=== PATIENT | female | born 1970 | race Caucasian/White ===

== ENCOUNTER 2017-08-09 11:25 | Inpatient (IN) | payer BC ==
[2017-08-09] VITALS (13 sets, daily range): BP systolic 92–160; BP diastolic 43–70; PULSE 69–100; RESP 12–20; TEMP 95–97.9; O2SAT 97–100
[~2017-08-09] VITALS: Ht 172.7 cm; Wt 70.0 kg
[2017-08-09 11:52] LABS: AUTOMATED NEUTROPHIL # 5.5 TH/MM3 (1.8-7.7); BASOPHIL % 0.5 % (0.0-2.0); EOSINOPHIL % 0.3 % (0.0-4.0); HEMATOCRIT 38.6 % (35.0-46.0); HEMOGLOBIN 13.2 GM/DL (11.6-15.3); LYMPH % 20.2 % (9.0-44.0); LYMPHOCYTE # 1.5 TH/MM3 (1.0-4.8); MEAN CELL VOLUME 89.4 FL (80.0-100.0); MEAN CORPUSCULAR HEMOGLOBIN 30.7 PG (27.0-34.0); MEAN CORPUSCULAR HGB CONC 34.3 % (32.0-36.0); MEAN PLATELET VOLUME 8.5 FL (7.0-11.0); MONOCYTE # 0.4 TH/MM3 (0-0.9); PLATELET COUNT 214 TH/MM3 (150-450); RED BLOOD COUNT 4.31 MIL/MM3 (4.00-5.30); RED CELL DISTRIBUTION WIDTH 12.8 % (11.6-17.2); WHITE BLOOD COUNT 7.5 TH/MM3 (4.0-11.0)
[2017-08-09] MEDS ORDERED: TRANEXAMIC ACID INJ 1,000 MG/10 ML AMP IV ONE (12:00)
[2017-08-09] MEDS ORDERED: EPINEPHrine HCL (1:1000) 1 MG/ML VIAL IV ONE (12:00)
[2017-08-09] MEDS ORDERED: NOREPINEPHRINE 4 MG/4 ML AMP IV ONE (12:00)
[2017-08-09] MEDS ORDERED: ePHEDrine/NS 25 MG/5 ML SYRINGE IV ONE (12:00)
[2017-08-09] MEDS ORDERED: PROTAMINE SULFATE 250 MG/25 ML VIAL IV ONE (12:00)
[2017-08-09] MEDS ORDERED: HEPARIN SODIUM - SQ 10,000 UNITS/ML VIAL OTHER ONE (12:00)
[2017-08-09] MEDS ORDERED: VECURONIUM BROMIDE 10 MG VIAL IV ONE (12:00)
[2017-08-09] MEDS ORDERED: LIDOCAINE HCL 1% PF 5 ML AMPULE OTHER ONE (12:00)
[2017-08-09] MEDS ORDERED: MAGNESIUM SULFATE 1 GM/2 ML VIAL IV ONE (12:00)
[2017-08-09] MEDS ORDERED: LIDOCAINE HCL 2% 100 MG/5 ML SYRINGE IV PUSH ONE (12:00)
[2017-08-09] MEDS ORDERED: CALCIUM CHLORIDE 10% SOLN 1 GRAM/10 ML SYR IV ONE (12:00)
[2017-08-09] MEDS ORDERED: NITROGLYCERIN 50 MG/DEXTROSE 5% SOLN 250 ML BTL IV ONE (12:00)
[2017-08-09] MEDS ORDERED: AMIODARONE HCL 150 MG/3 ML VIAL IV ONE (12:00)
[2017-08-09] MEDS ORDERED: SODIUM BICARBONATE 8.4% INJ 50 MEQ/50 ML SYR IV ONE (12:00)
[2017-08-09] MEDS ORDERED: DEXMEDETOMIDINE HCL 200 MCG/2 ML VIAL IV ONE (12:00)
[2017-08-09] MEDS ORDERED: CARDIOPLEGIC IRR 2,000 ML IRRIGATION ONE (12:00)
[2017-08-09] MEDS ORDERED: PHENYLEPH/NS 1000 MCG/10 ML SYR IV ONE (12:00)
--- NOTE | 2017-08-09 12:00 | PD ---
HPI Chief Complaint: Numbness/Tingling Time Seen by Provider: 11:28 Travel History International Travel<30 days: No Contact w/Intl Traveler<30days: No Traveled to known affect area: No History of Present Illness HPI 47yo F with no significant PMH presents to the ED with c/o chest discomfort that radiates to back and neck, as well as right leg weakness and numbness that started about 30 minutes ago. Pt has a family history of aortic aneurysm but no personal history. BP was significantly different in both arms. Associated with sob. Denies any n/v, abdominal pain. Pt has a strong family history of Marfan and aortic aneurysm. PFSH Past Medical History Medical History: Denies Significant Hx Tetanus Vaccination: > 5 Years Influenza Vaccination: No ?: Not LMP: 07/28/17 Past Surgical History Surgical History: No Previous Surgery Social History Alcohol Use: No Tobacco Use: No Substance Use: No Allergies-Medications (Allergen,Severity, Reaction): Coded Allergies: No Known Allergies (Verified Allergy, Unknown, 08/09/17) Reported Meds & Prescriptions Reported Meds & Active Scripts Active No Active Prescriptions or Reported Medications Review of Systems Except as stated in HPI: all other systems reviewed are Neg Physical Exam Narrative GENERAL: 47yo F in moderate distress. SKIN: Focused skin assessment warm/dry. HEAD: Atraumatic. Normocephalic. EYES: Pupils equal and round. No scleral icterus. No injection or drainage. ENT: No nasal bleeding or discharge. Mucous membranes pink and moist. NECK: Trachea midline. No JVD. CARDIOVASCULAR: Regular rate and rhythm. No murmur appreciated. RESPIRATORY: No accessory muscle use. Clear to auscultation. Breath sounds equal bilaterally. GASTROINTESTINAL: Abdomen soft, non-tender, nondistended. MUSCULOSKELETAL: RLE DP 1+. LLE: 2+. Left radial pulse 2+. Cannot palpate right radial pulse. NEUROLOGICAL: Awake and alert. No obvious cranial nerve deficits. RLE muscle strength 4/5 with decreased sensation compare to left. All other extremity muscle strength 5/5. Normal speech. PSYCHIATRIC: Appropriate mood and affect; insight and judgment normal. Data Data Last Documented VS Vital Signs Date Time Temp Pulse Resp B/P (MAP) Pulse Ox O2 Delivery O2 Flow Rate FiO2 08/09/17 13:11 67 159/68 08/09/17 12:50 18 99 Room Air 08/09/17 11:28 97.9 Orders Orders Electrocardiogram (08/09/17 11:28) Basic Metabolic Panel (Bmp) (08/09/17 11:28) Complete Blood Count With Diff (08/09/17 11:28) Magnesium (Mg) (08/09/17 11:28) Prothrombin Time / Inr (Pt) (08/09/17 11:28) Act Partial Throm Time (Ptt) (08/09/17 11:28) Troponin I (08/09/17 11:28) Ecg Monitoring (08/09/17 11:28) Bilateral Bp Monitoring (08/09/17 11:28) Cta Thor Abd Aorta W Iv C W3d (08/09/17 11:28) Ct Brain W/O Iv Contrast(Rout) (08/09/17 ) I-Stat Profile (08/09/17 11:31) Iohexol 350 Inj (Omnipaque 350 Inj) (08/09/17 12:08) Type And Screen (08/09/17 12:11) Echo 2d Comp With Doppler (08/09/17 ) Metoprolol Tartrate Inj (Lopressor Inj) (08/09/17 13:00) Esmolol Drip Inj Premix (Brevibloc Drip (08/09/17 14:00) Esmolol Bolus Inj (Brevibloc Bolus Inj) (08/09/17 13:30) Red Blood Cells (Rbc) (08/09/17 13:01) Urinalysis - C+S If Indicated (08/09/17 13:01) Diet Npo Except Meds (08/09/17 Lunch) Vital Signs (Adult) .On admission (08/09/17 13:01) Notify Dr: Other (08/09/17 13:01) ^ Hold Medication (08/09/17 13:01) Sodium Chloride 0.9% Flush (Ns Flush) (08/09/17 21:00) Sodium Chloride 0.9% Flush (Ns Flush) (08/09/17 13:15) Papaverine Inj (Papaverine Inj)... (08/09/17 13:15) Cefazolin Inj (Ancef Inj) (08/09/17 13:15) Cefazolin 2 Gm Premix (Ancef 2 Gm Premix (08/09/17 13:15) Chlorhexidine 4% Top Soln (Hibiclens 4% (08/09/17 13:15) Insulin Regular (Iv Infusion) (Novolin R (08/09/17 13:15) Dextrose 50% In Mariano (Vial) Inj (D50w (Vi (08/09/17 13:15) Mrsa Pcr Surveillance (08/09/17 13:01) Metoprolol Tartrate Inj (Lopressor Inj) (08/09/17 14:00) Admit Order (Ed Use Only) (08/09/17 13:21) Morphine Inj (Morphine Inj) (08/09/17 14:00) Labs Laboratory Tests Test 08/09/17 11:32 White Blood Count 7.5 TH/MM3 Red Blood Count 4.31 MIL/MM3 Hemoglobin 13.2 GM/DL Bedside Hemoglobin 11.6 G/DL Hematocrit 38.6 % Bedside Hematocrit 34.0 % Mean Corpuscular Volume 89.4 FL Mean Corpuscular Hemoglobin 30.7 PG Mean Corpuscular Hemoglobin Concent 34.3 % Red Cell Distribution Width 12.8 % Platelet Count 214 TH/MM3 Mean Platelet Volume 8.5 FL Neutrophils (%) (Auto) 73.0 % Lymphocytes (%) (Auto) 20.2 % Monocytes (%) (Auto) 6.0 % Eosinophils (%) (Auto) 0.3 % Basophils (%) (Auto) 0.5 % Neutrophils # (Auto) 5.5 TH/MM3 Lymphocytes # (Auto) 1.5 TH/MM3 Monocytes # (Auto) 0.4 TH/MM3 Eosinophils # (Auto) 0.0 TH/MM3 Basophils # (Auto) 0.0 TH/MM3 CBC Comment DIFF FINAL Differential Comment Prothrombin Time 10.7 SEC Prothromb Time International Ratio 1.1 RATIO Activated Partial Thromboplast Time 24.3 SEC Bedside Sodium 139 MMOL/L Blood Urea Nitrogen 14 MG/DL Creatinine 0.73 MG/DL Random Glucose 106 MG/DL Calcium Level 7.7 MG/DL Magnesium Level 1.8 MG/DL Sodium Level 139 MEQ/L Potassium Level 4.9 MEQ/L Chloride Level 111 MEQ/L Carbon Dioxide Level 17.0 MEQ/L Bedside Potassium 4.9 MMOL/L Bedside Chloride 108 MMOL/L Anion Gap 11 MEQ/L Bedside Blood Urea Nitrogen 18 MG/DL Bedside Creatinine 0.7 MG/DL Estimat Glomerular Filtration Rate 86 ML/MIN Bedside Glucose 112 MG/DL Phosphorus Level 3.0 MG/DL Troponin I LESS THAN 0.02 NG/ML MDM Medical Decision Making Medical Screen Exam Complete: Yes Emergency Medical Condition: Yes Interpretation(s) EKG: NSR 66bpm. Normal axis. No ST segment elevation or depression. Differential Diagnosis Aortic dissection vs. CVA vs. ACS Narrative Course 47yo F with chest pain radiating to back and right leg weakness and numbness about 30 minutes prior to arrival. Pt also had BP of 92/43 right upper extremity and 152/56 left upper extremity. Pt was immediately brought to CT scan to r/o dissection on hospital monitor. Also ordered a CT brain just to make sure there is no ICH or CVA given right lower extremity deficits. CTA showed dissection from aortic arch to pelvis to right iliac. Discussed with vascular surgeon Dr. Ponce at 12:20pm. Dr. Ponce came to the ED and said that the dissection involves the ascending aorta so CT surgery is needed. He called CT surgery Dr. Manzano at 12:38pm and Dr. Manzano's PA is on her way. Esmolol drip ordered to keep systolic <110. Esmolol bolus and drip ordered. Official CTA showed extensive anitra type A aortic dissection. 1:18pm Dr. Manzano is in the ED and will take patient to the OR now. Pt has consented. Dr. Fox scrap sorter is also here and accepted the patient. Critical Care Narrative Aggregate critical care time was 45 minutes. Time to perform other separately billable procedures was not included in the critical care time. My time did not include minutes spent treating any other patients simultaneously or on activities that did not directly contribute to the patient's treatment. The services I provided to this patient were to treat and/or prevent clinically significant deterioration that could result in: cardiovascular collapse or . I provided critical care services requiring my management, as noted below: Chart data review, documentation time, medication orders and management, vital sign assessments/reviewing monitor data, ordering and reviewing lab tests, ordering and interpreting/reviewing x-rays and diagnostic studies, care of the patient and discussion of the patient with the admitting physicians. Diagnosis Primary Impression: Aortic aneurysm with dissection Admitting Information Admitting Physician Requests: Admit Scripts No Active Prescriptions or Reported Meds Pao Lancaster DO Aug 09, 2017 12:00
[2017-08-09 12:08] LABS: PROTHROMBIN TIME - PATIENT 10.7 SEC (9.8-11.6)
[2017-08-09] MEDS ORDERED: IOHEXOL 350 MG/ML 10 ML VIAL (for RAD DIAG) IVCONTRAST ONE (12:08)
[2017-08-09 12:10] LABS: INTERNATIONAL NORMALIZED RATIO 1.1 RATIO
--- NOTE | 2017-08-09 12:14 | RADRPT ---
EXAM DATE/TIME: 08/09/2017 11:54 [facility] COMPARISON: No previous studies available for comparison. INDICATIONS : Weakness RADIATION DOSE: 56.35 CTDIvol (mGy) MEDICAL HISTORY : None SURGICAL HISTORY : None. ENCOUNTER: Initial ACUITY: 1 day PAIN SCALE: 0/10 LOCATION: cranial TECHNIQUE: Multiple contiguous axial images were obtained of the head. Using automated exposure control and adj ustment of the mA and/or kV according to patient size, radiation dose was kept as low as reasonably a chievable to obtain optimal diagnostic quality images. DICOM format image data is available electro nically for review and comparison. FINDINGS: CEREBRUM: The ventricles are normal for age. No evidence of midline shift, mass lesion, hemorrhage or acute in farction. No extra-axial fluid collections are seen. POSTERIOR FOSSA: The cerebellum and brainstem are intact. The 4th ventricle is midline. The cerebellopontine angle i s unremarkable. EXTRACRANIAL: The visualized portion of the orbits is intact. SKULL: The calvaria is intact. No evidence of skull fracture. CONCLUSION: No acute disease. Henok Issa MD on August 09, 2017 at 12:11 Board Certified Radiologist. This report was verified electronically.
[2017-08-09 12:25] LABS: BLOOD UREA NITROGEN 14 MG/DL (7-18); CALCIUM 7.7 MG/DL (8.5-10.1); CHLORIDE 111 MEQ/L (98-107); CREATININE 0.73 MG/DL (0.50-1.00); GLOMERULAR FILTRATION RATE 86 ML/MIN (>89); GLUCOSE,RANDOM 106 MG/DL (74-106); MAGNESIUM 1.8 MG/DL (1.5-2.5); SODIUM (NA) 139 MEQ/L (136-145); TROPONIN I LESS THAN 0.02 NG/ML (0.02-0.05)
[2017-08-09] MEDS ORDERED: ESMOLOL HCL 100 MG/10 ML VIAL IV STA (12:33)
--- NOTE | 2017-08-09 12:51 | RADRPT ---
EXAM DATE/TIME: 08/09/2017 11:54 [facility] COMPARISON: No previous studies available for comparison. INDICATIONS : Chest pain IV CONTRAST: 100 cc Omnipaque 350 (iohexol) IV RADIATION DOSE: 5.32 CTDIvol (mGy) MEDICAL HISTORY : None SURGICAL HISTORY : None. ENCOUNTER: Initial ACUITY: 1 day PAIN SCALE: 7/10 LOCATION: chest TECHNIQUE: Volumetric scanning was performed using a multi-row detector CT scanner. The data was post processed with a variety of visualization algorithms including full volume maximum intensity projection, multi -planar sliding thin slab reformation, curved planar reformation, and surface rendering techniques. Using automated exposure control and adjustment of the mA and/or kV according to patient size, radiat ion dose was kept as low as reasonably achievable to obtain optimal diagnostic quality images. DICOM format image data is available electronically for review and comparison. FINDINGS: Thoracic/abdominal aorta: There is an impressive Seferino type A aortic dissection that begins at the level of the sinus of Allie samir and extends through the thoracic and abdominal aorta terminating in the region of the distal ri ght common iliac artery and proximal left common iliac artery. The true lumen is compressed by the fa lse lumen. Both opacify with the IV contrast consistent with a component of fenestration. The dissect ion extends into the arch vessels. The dissection extends into the right common carotid artery where there is significant luminal narrowing due to compression of the true lumen by the false lumen. The f alse lumen and this section is thrombosed. The common carotid measures 2 mm in diameter. The dissecti on has a similar appearance involving the left common carotid artery with thrombosis of the false lum en and considerable compression of the true lumen. This measures 2 mm in diameter as well. The right coronary artery arises from the false lumen and is opacify with contrast. Left coronary artery arises from the true lumen and is opacified with contrast. The celiac arises from the true lumen as does th e SMA and both renal arteries. DIMAS is patent and arises from the true lumen as well. The right distal common iliac artery shows severe narrowing and perhaps short segment occlusion secondary to compress ion of the true lumen by a thrombosed false lumen. There is reconstitution. The left inflow remains p atent. Heart and mediastinum: No hemo-pericardium. Heart is normal in size. Lung parenchyma: Lungs are clear. No effusions. Other structures: Abdominal viscera are unremarkable. In particular, the kidneys are enhancing with contrast. The left kidney does enhance to a slightly lesser degree than the right. CONCLUSION: 1. Extensive Seferino type A aortic dissection. The aneurysm begins at the aortic root and extends in to both common carotid arteries with significant narrowing of the true lumens as well as high grade s tenosis versus short segment occlusion of the right common iliac artery. The right coronary artery ar ises from the false lumen and the left the true lumen. See full discussion above. 2. No hemo-pericardium. 3. I spoke with Dr. Lancaster. Jose Kinsey Jr., MD on August 09, 2017 at 12:37 Board Certified Radiologist. This report was verified electronically.
[2017-08-09] MEDS ORDERED: METOPROLOL TARTRATE 5 MG/5 ML VIAL IV PUSH ONE ×2 (13:00→14:00)
[2017-08-09] MEDS ORDERED: ceFAZolin 2 GM PREMIX 50 ML IV SCH (13:15)
[2017-08-09] MEDS ORDERED: SODIUM CHLORIDE 0.9% FLUSH 10 ML FLUSH IV FLUSH PRN ×3 (13:15→22:30)
[2017-08-09] MEDS ORDERED: CEFAZOLIN INJ 500 MG in SODIUM CHLORIDE 0.9% IRR BTL 500 ML IRRIGATION SCH (13:15)
[2017-08-09] MEDS ORDERED: INSULIN REGULAR (IV INFUSION) 100 UNITS in SODIUM CHLORIDE 0.9% INJ 99 ML IV PRN ×2 (13:15→22:30)
[2017-08-09] MEDS ORDERED: DEXTROSE 50% IN WATER 50 ML VIAL(D50) IV PUSH PRN ×3 (13:15→22:30)
[2017-08-09] MEDS ORDERED: PAPAVERINE INJ 60 MG, NITROGLYCERIN INJ 100 MCG, DILTIAZEM INJ 100 MG in SODIUM CHLORID... IRRIGATION SCH (13:15)
[2017-08-09] MEDS ORDERED: CHLORHEXIDINE GLUCONATE 4% SOLN 120 ML BTL TOPICAL SCH (13:15)
[2017-08-09] MEDS ORDERED: MORPHINE SULFATE 4 MG/ML INJ ONE (13:27)
[2017-08-09] MEDS ORDERED: ESMOLOL HCL 100 MG/10 ML VIAL IV PUSH ONE (13:30)
[2017-08-09] MEDS ORDERED: HEPARIN SODIUM - SQ 10,000 UNITS/ML VIAL ONE ×2 (13:56→23:21)
[2017-08-09] MEDS ORDERED: VANCOMYCIN HCL 1000 MG VIAL ONE (13:57)
[2017-08-09] MEDS ORDERED: ceFAZolin 2 GM PREMIX 50 ML ONE ×2 (13:57→14:47)
[2017-08-09] MEDS ORDERED: ESMOLOL 2500 MG/NS 250 ML PREMIX DRIP IV PRN (14:00)
[2017-08-09] MEDS ORDERED: MORPHINE SULFATE 2 MG/ML INJ IV PUSH ONE (14:00)
[2017-08-09] MEDS ORDERED: methylPREDNISolone SOD SUCC 125 MG/2 ML VIAL ONE ×2 (14:46→14:55)
--- NOTE | 2017-08-09 14:59 | ECHRPT ---
Indication: ASCENDING AORTIC ANEURYSM CONCLUSIONS Normal left ventricular size and wall thickness. The left ventricular systolic function is normal wi th an estimated ejection fraction in the range of 60-65%. No regional wall motion abnormalities are presen t. [id number]-[id number] aortic valve regurgitation. Moderately to severely dilated ascending thoracic aorta with evidence for dissection beginning in t he aortic root. The rest of the aortic arch is not imaged. BP: 156 / 66 HR: 80 Rhythm: Sinus MEASUREMENTS (Male / Female) Normal Values Technical Quality:Fair 2D ECHO LVOT Diameter 2.3 cm Aortic Root Diameter 5.6 cm DOPPLER AV Peak Velocity 112.0 cm/s AV Peak Gradient 5.0 mmHg AV Mean Gradient 3.0 mmHg AV Velocity Time Integral 26.7 cm AI Peak Velocity 379.0 cm/s AI Peak Gradient 57.5 mmHg AI Pressure Half Time 314.0 ms LVOT Peak Velocity 58.7 cm/s LVOT Peak Gradient 1.4 mmHg LVOT Velocity Time Integral 13.6 cm AV Area Cont Eq vti 2.1 cm AV Area Cont Eq pk 2.2 cm FINDINGS LEFT VENTRICLE Normal left ventricular size and wall thickness. The left ventricular systolic function is normal wi th an estimated ejection fraction in the range of 60-65%. No regional wall motion abnormalities are presen t. RIGHT VENTRICLE Normal right ventricular size and systolic function. LEFT ATRIUM The left atrial size is normal. RIGHT ATRIUM The right atrial size is normal. ATRIAL SEPTUM Normal atrial septal thickness without atrial level shunting by limited color doppler interrogation. AORTA Moderately to severely dilated ascending thoracic aorta with evidence for dissection beginning in t he aortic root. MITRAL VALVE Structurally normal mitral valve. No mitral valve stenosis or regurgitation. AORTIC VALVE [id number] aortic valve regurgitation. TRICUSPID VALVE Structurally normal tricuspid valve. No tricuspid valve stenosis or regurgitation. PULMONARY VALVE The pulmonary valve is not well visualized. VESSELS The inferior vena cava is normal in size. PERICARDIUM No pericardial effusion. Chetan Cmapa MD (Electronically Signed) Final Date:09 August 2017 14:58
[2017-08-09] MEDS ORDERED: MAGNESIUM OXIDE 400 MG TAB PO PRN (15:15)
[2017-08-09] MEDS ORDERED: RESP: ALBUTEROL 2.5 MG/3 ML NEB (PRN) INH (15:15)
[2017-08-09] MEDS ORDERED: MAGNESIUM SULFATE INJ 4 GM in SODIUM CHLORIDE 0.9% INJ 92 ML IV PRN (15:15)
[2017-08-09] MEDS ORDERED: POTASSIUM CHLORIDE 25 MEQ EFFERVESCENT TAB PO PRN (15:15)
[2017-08-09] MEDS ORDERED: POTASSIUM PHOSPHATE INJ 30 MMOL in SODIUM CHLOR 0.9% 250 ML INJ 250 ML IV PRN (15:15)
[2017-08-09] MEDS ORDERED: SENNOSIDES 8.6 MG TAB PO PRN (15:15)
[2017-08-09] MEDS ORDERED: MISCELLANEOUS NURSING INFORMATION XX SCH (15:15)
[2017-08-09] MEDS ORDERED: LACTULOSE SYRUP 20 GM/30 ML CUP PO PRN (15:15)
[2017-08-09] MEDS ORDERED: SODIUM PHOSPHATE INJ 30 MMOL in SODIUM CHLOR 0.9% 250 ML INJ 240 ML IV PRN (15:15)
[2017-08-09] MEDS ORDERED: POTASSIUM PHOSPHATE MONOBASIC 500 MG TAB PO PRN (15:15)
[2017-08-09] MEDS ORDERED: ONDANSETRON HCL 4 MG/2 ML VIAL IV PUSH PRN (15:15)
[2017-08-09] MEDS ORDERED: POTASSIUM CHLOR 20 MEQ PREMIX 100 ML IV PRN ×4 (15:15→22:30)
[2017-08-09] MEDS ORDERED: MAGNESIUM SULFATE INJ 2 GM in SODIUM CHLORIDE 0.9% INJ 96 ML IV PRN (15:15)
[2017-08-09] MEDS ORDERED: POTASSIUM PHOSPHATE MONOBASIC 500 MG TAB PO/TUBE PRN (15:15)
[2017-08-09] MEDS ORDERED: POTASSIUM CHLOR 40 MEQ PREMIX 100 ML IV PRN ×2 (15:15)
[2017-08-09] MEDS ORDERED: CHLORHEXIDINE GLUCONATE 2 % 1 PACK (2 CLOTHS) TOP PRN (15:15)
[2017-08-09] MEDS ORDERED: MAGNESIUM HYDROXIDE SUSP 30 ML CUP PO PRN (15:15)
[2017-08-09] MEDS ORDERED: BISACODYL 10 MG SUPP RECTAL PRN (15:15)
[2017-08-09] MEDS ORDERED: GLUCAGON 1 MG/ML VIAL OTHER PRN (15:30)
[2017-08-09] MEDS ORDERED: RESP: ALBUTEROL 2.5 MG/IPRATROPIUM 0.5 MG NEB (SCH) INH (16:00)
--- NOTE | 2017-08-09 16:17 | MB ---
cc: Rosalind Rodrigues DATE OF CONSULT: HISTORY OF PRESENT ILLNESS: A 47-year-old female brought in by [employer] from work with complaint of pain between her shoulder blades, both side of her neck, also some weakness in her right leg and numbness in her right foot that started about 30 minutes prior to arrival. She had a significant difference in the blood pressures in both of her arms, the right being lower than the left. They did a stat CTA of the aorta, which showed an extensive [place] type A aortic dissection. The aneurysm begins at the aortic root, extending into both common carotids with significant narrowing of the true lumens as well as high-grade stenosis versus short segment occlusion of the right common iliac. The right coronary artery arises from the false lumen and left, the true lumen. No hemopericardium. We were immediately consulted to evaluate for repair of emergent ascending aortic aneurysm. PAST MEDICAL HISTORY: Only rosacea. MEDICATIONS: She uses some doxycycline. Takes an occasional Advil. ALLERGIES: SHE HAS NO KNOWN ALLERGIES: Per the , she recently had some flu-like symptoms about a week ago, was complaining of some neck discomfort over the weekend. SOCIAL HISTORY: Patient is , has 2 children. FAMILY HISTORY: Apparently, her mother had aneurysm repair. She lost 1 brother that was all due to probable history of Marfan syndrome. Also has a sister who is still alive with Marfan syndrome. She has had some sort of aortic-type surgery. REVIEW OF SYSTEMS: GENERAL: No night sweats, fever, heat and cold intolerance. She is complaining of generalized discomfort including discomfort in both sides of her neck, some pressure in her chest, and a pain of 7/7 on her chest. SKIN: No psoriasis, itching. She does have some rosacea. HEENT: She has had some recent blurred vision that occurred prior to her arrival, which she still has a little bit ongoing, but it improved since she presented to the hospital. GASTROINTESTINAL: She denies any nausea or vomiting. No diarrhea. GENITOURINARY: No burning, frequency, urgency. CENTRAL NERVOUS SYSTEM: No history of TIA, CVA, seizure disorder. ENDOCRINOLOGY: No history of hypothyroidism or hypertension. PHYSICAL EXAMINATION: VITAL SIGNS: Blood pressure now 142/60, heart rate of 70, room air sat 100%. GENERAL: Patient is awake, alert, in mild distress. HEENT: Normocephalic, atraumatic. Pupils are equal and reactive. Oral mucosa pink, moist. NECK: Supple. She has got a large bruit on the right carotid. HEART: Sounds S1, S2, regular rate and rhythm, soft systolic murmur. LUNGS: Clear to auscultation. No wheezes, rales, or rhonchi. ABDOMEN: Soft, nontender, no masses or organomegaly. EXTREMITIES: Reveal +2 left radial pulse, +2 left posterior tibial and dorsalis pedis. The right radial pulse is significantly reduced, possible +1, and the right lower extremity +1. Both the right hand and the right foot are still warm to touch with fair capillary refill. NEUROLOGIC: She has some decreased muscle strength in the right lower extremity, and she complains of some numbness from the mid forefoot down. Speech is normal. LABORATORY DATA: Lab work shows hemoglobin 11, hematocrit of 34, white cell count of 7.5, platelet count of 214. Sodium 139, potassium 4.9, BUN of 18, creatinine 0.73, glucose 112. Troponin less than 0.02. Magnesium 1.8. INR 1.1. They also did a head CT, which was no acute disease. EKG showed normal sinus rhythm with no acute changes. Echocardiogram was completed, which showed ejection fraction 60%-65%, [id number] aortic valve regurgitation, [id number] dilated ascending thoracic aorta with evidence for dissection beginning in the aortic root, structurally normal tricuspid valve, no pericardial effusion. IMPRESSION: A 47-year-old female with family history of Marfan syndrome. Also note that the son was diagnosed and is being followed closely. She, however, has not undergone any type of radiological following according to the patient. She is now admitted with an acute ascending extensive Seferino type A aortic dissection as above. Procedures, alternatives have been discussed with the patient per Dr. Kailey Manzano. Planning is for emergent surgery for repair of the ascending aortic aneurysm and also placement of a aortic root valve, mechanical in nature. Further discussion as per Dr. Kailey Manzano. ILSA Castillo MD JRT/CECY , 03:36 PM , 04:16 PM
[2017-08-09] MEDS ORDERED: INSULIN ASPART SUPPLEMENTAL SCALE SQ SCH (17:00)
--- NOTE | 2017-08-09 17:32 | HHI.HP ---
HPI Service Critical Care Medicine Primary Care Physician Unknown Admission Diagnosis Aortic dissection Diagnosis: Travel History International Travel<30 Days: No Contact w/Intl Traveler <30 Da: No Traveled to Known Affected Are: No History of Present Illness HPI This is a 47-year-old female, that presented to [facility] ED, arriving from work with complaints chest pain that radiated to her back and neck. Per report she also complained of weakness and numbness of her right lower extremity, patient was accompanied by her coworker. Past medical history significant for Marfan's which she reported to me, and stated her father had an aortic aneurysm and her son also has Marfan's. Imaging studies were performed which revealed an extensive Hague type A aortic dissection. Esmolol infusion was initiated. CT surgery was consulted, and the patient was transported to the OR. Critical care medicine was consulted. History PFSH Past Medical History Medical History: Denies Significant Hx Tetanus Vaccination: > 5 Years Influenza Vaccination: No ?: Not LMP: 07/28/17 Past Surgical History Surgical History: No Previous Surgery Social History Alcohol Use: No Tobacco Use: No Substance Use: No Allergies-Medications Allergies-Medications (Allergen,Severity, Reaction): Coded Allergies: No Known Allergies (Verified Allergy, Unknown, 08/09/17) Reported Meds & Prescriptions Reported Meds & Active Scripts Active No Active Prescriptions or Reported Medications Review of Systems ROS 12 point review of systems done with patient negative except for pertinent positives mentioned in the above history and physical Physical Exam Vital Signs Vital Signs Date Time Temp Pulse Resp B/P (MAP) Pulse Ox O2 Delivery O2 Flow Rate FiO2 08/09/17 15:10 08/09/17 13:51 73 18 142/65 (90) 100 Room Air 08/09/17 13:47 76 18 156/68 (97) 100 Room Air 08/09/17 13:42 69 160/65 08/09/17 13:41 70 18 160/65 (96) 100 Room Air 08/09/17 13:35 71 18 153/70 (97) 99 Room Air 08/09/17 13:35 72 153/70 08/09/17 13:28 74 142/67 08/09/17 13:27 69 18 124/67 (86) 99 Room Air 08/09/17 13:11 67 159/68 08/09/17 12:50 80 18 156/66 (96) 99 Room Air 08/09/17 12:32 100 17 156/66 (96) 100 Room Air 08/09/17 11:33 70 18 92/43 (59) 100 Room Air 152/56 (88) 08/09/17 11:28 97.9 69 20 92/43 (59) 100 152/56 (88) Physical Exam GENERAL: This is a well-developed well-nourished female in moderate distress, and tearful SKIN: Warm and dry HEAD: Atraumatic. Normocephalic. EYES: Pupils equal and round. 3 mm and brisk. No scleral icterus. No injection or drainage. ENT: No nasal bleeding or discharge. Mucous membranes pink and moist. Uvula midline. Mallampati classification 1 NECK: Trachea midline. No JVD. CARDIOVASCULAR: Regular rate and rhythm. No murmur appreciated. RESPIRATORY: No accessory muscle use. Clear to auscultation. Breath sounds equal bilaterally. Currently on nasal cannula at 2 L GASTROINTESTINAL: Abdomen soft, non-tender, nondistended. MUSCULOSKELETAL: RLE DP 1+. LLE: 2+. Left radial pulse 2+. Right radial pulse nonpalpable NEUROLOGICAL: Awake and alert. No obvious cranial nerve deficits. RLE muscle strength 4/5 with decreased sensation compare to left. All other extremity muscle strength 5/5. Normal speech. Laboratory Laboratory Tests Test 08/09/17 11:32 White Blood Count 7.5 Red Blood Count 4.31 Hemoglobin 13.2 Bedside Hemoglobin 11.6 Hematocrit 38.6 Bedside Hematocrit 34.0 Mean Corpuscular Volume 89.4 Mean Corpuscular Hemoglobin 30.7 Mean Corpuscular Hemoglobin Concent 34.3 Red Cell Distribution Width 12.8 Platelet Count 214 Mean Platelet Volume 8.5 Neutrophils (%) (Auto) 73.0 Lymphocytes (%) (Auto) 20.2 Monocytes (%) (Auto) 6.0 Eosinophils (%) (Auto) 0.3 Basophils (%) (Auto) 0.5 Neutrophils # (Auto) 5.5 Lymphocytes # (Auto) 1.5 Monocytes # (Auto) 0.4 Eosinophils # (Auto) 0.0 Basophils # (Auto) 0.0 CBC Comment DIFF FINAL Differential Comment Prothrombin Time 10.7 Prothromb Time International Ratio 1.1 Activated Partial Thromboplast Time 24.3 Bedside Sodium 139 Blood Urea Nitrogen 14 Creatinine 0.73 Random Glucose 106 Calcium Level 7.7 Magnesium Level 1.8 Sodium Level 139 Potassium Level 4.9 Chloride Level 111 Carbon Dioxide Level 17.0 Bedside Potassium 4.9 Bedside Chloride 108 Anion Gap 11 Bedside Blood Urea Nitrogen 18 Bedside Creatinine 0.7 Estimat Glomerular Filtration Rate 86 Bedside Glucose 112 Troponin I LESS THAN 0.02 Result Diagram: 08/09/17 1132 08/09/17 1132 Imaging Last Impressions Aorta CTA 08/09/17 1128 Signed Impressions: Service Date/Time: Wednesday, August 09, 2017 11:54 - CONCLUSION: 1. Extensive Hague type A aortic dissection. The aneurysm begins at the aortic root and extends into both common carotid arteries with significant narrowing of the true lumens as well as high grade stenosis versus short segment occlusion of the right common iliac artery. The right coronary artery arises from the false lumen and the left the true lumen. See full discussion above. 2. No hemo- pericardium. 3. I spoke with Dr. Lancaster. Jose Kinsey Jr., MD Head CT 08/09/17 0000 Signed Impressions: Service Date/Time: Wednesday, August 09, 2017 11:54 - CONCLUSION: No acute disease. Henok Issa MD Septic Shock Reassessment Septic shock perfusion: reassessment completed Caprini VTE Risk Assessment Caprini VTE Risk Assessment: Mod/High Risk (score >= 2) Caprini Risk Assessment Model Point Value = 1 Point Value = 2 Point Value = 3 Point Value = 5 Age 41-60 Minor surgery BMI > 25 kg/m2 Swollen legs Varicose veins or History of unexplained or recurrent spontaneous Oral contraceptives or hormone replacement Sepsis (< 1 month) Serious lung disease, including pneumonia (< 1 month) Abnormal pulmonary function Acute myocardial infarction Congestive heart failure (< 1 month) History of inflammatory bowel disease Medical patient at bed rest Age 61-74 Arthroscopic surgery Major open surgery (> 45 min) Laparoscopic surgery (> 45 min) Malignancy Confined to bed (> 72 hours) Immobilizing plaster cast Central venous access Age >= 75 History of VTE Family history of VTE Factor V Leiden Prothrombin [id number] Lupus anticoagulant Anticardiolipin antibodies Elevated serum homocysteine Heparin-induced thrombocytopenia Other congenital or acquired thrombophilia Stroke (< 1 month) Elective arthroplasty Hip, pelvis, or leg fracture Acute spinal cord injury (< 1 month) Prophylaxis Regimen Total Risk Factor Score Risk Level Prophylaxis Regimen 0-1 Low Early ambulation 2 Moderate Order ONE of the following: *Sequential Compression Device (SCD) *Heparin 5000 units SQ BID 3-4 Higher Order ONE of the following medications: *Heparin 5000 units SQ TID *Enoxaparin/Lovenox 40 mg SQ daily (WT < 150 kg, CrCl > 30 mL/min) *Enoxaparin/Lovenox 30 mg SQ daily (WT < 150 kg, CrCl > 10-29 mL/min) *Enoxaparin/Lovenox 30 mg SQ BID (WT < 150 kg, CrCl > 30 mL/min) AND/OR *Sequential Compression Device (SCD) 5 or more Highest Order ONE of the following medications: *Heparin 5000 units SQ TID (Preferred with Epidurals) *Enoxaparin/Lovenox 40 mg SQ daily (WT < 150 kg, CrCl > 30 mL/min) *Enoxaparin/Lovenox 30 mg SQ daily (WT < 150 kg, CrCl > 10-29 mL/min) *Enoxaparin/Lovenox 30 mg SQ BID (WT < 150 kg, CrCl > 30 mL/min) AND *Sequential Compression Device (SCD) Assessment and Plan Problem List: (1) Aortic aneurysm with dissection ICD Code: I71.00 - Dissection of unspecified site of aorta Status: Acute Assessment and Plan Plan by systems: Neurologic: Neurochecks per ICU protocol Respiratory: Maintain O2 saturation 92% Currently on O2 at 2 L/m Cardiovascular: To CT surgery PA Ms. Rodrigues-plan for repair or dissection Systolic blood pressure less than 120 currently on esmolol infusion, heart rate less than 7 Type and screen for OR Obtain [id number] results Renal: Place españa upon arrival to OR -- Strict I/Os FEN/GI: Maintain NPO status-pending OR Zofran for nausea Bowel regimen Heme/ID: Type and screen for OR Monitor CBC Endocrine: Glucose monitoring per ICU protocol, low dose regimen -- SSI Prophylaxis: GI Prophylaxis Famotidine DVT Prophylaxis -- SCDs Lines: Currently peripheral IV's. Invasive monitoring,to be placed intraoperatively Dispo: my billing statement This patient remains critically ill with one or more organ systems which are or may become a threat to life. I have spent in excess of 30 minutes discontinuously in the care and management of this patient. This time is exclusive of procedures, and includes, but is not limited to, evaluation of the patient, review of the medical record, discussions with family, consultants, nursing staff, or respiratory therapy, and documentation in the medical record. Code Status Full Discussed Condition With D/W Briaалександр CTS, and ED RN at bedside Kitty Desouza MD Aug 09, 2017 17:32
[2017-08-09] MEDS ORDERED: [UNRECOGNIZED DRUG - OTHER] ONE (18:12)
[2017-08-09] MEDS: CHLORHEXIDINE 0.12% (ORAL KIT) 15 ML CUP MT SCH (20:00)
[2017-08-09] MEDS ORDERED: SODIUM CHLORIDE 0.9% FLUSH 10 ML FLUSH IV FLUSH SCH ×2 (21:00)
[2017-08-09] MEDS ORDERED: CALCIUM CHLORIDE 10% SOLN 1 GRAM/10 ML SYR ONE (21:33)
[2017-08-09] MEDS ORDERED: SODIUM BICARBONATE 8.4% INJ 50 MEQ/50 ML SYR ONE (21:33)
[2017-08-09] MEDS ORDERED: SODIUM BICARBONATE 8.4% INJ 50 ML ONE (21:34)
[2017-08-09] MEDS ORDERED: DOBUTamine PREMIX DRIP 250 ML IV PRN (22:16)
[2017-08-09] MEDS ORDERED: CALCIUM CHLORIDE 10% 1 GRAM/10 ML VIAL IV PUSH PRN (22:30)
[2017-08-09] MEDS ORDERED: CALCIUM CHLORIDE INJ 1 GM in SODIUM CHLORIDE 0.9% INJ 100 ML IV PRN (22:30)
[2017-08-09] MEDS ORDERED: RESP: RACEPINEPHRINE 2.25% 0.5 ML NEB NEB PRN (22:30)
[2017-08-09] MEDS ORDERED: ACETAMINOPHEN 325 MG TAB PO PRN (22:30)
[2017-08-09] MEDS ORDERED: ALBUMIN 5% INJ 250 ML IV PRN (22:30)
[2017-08-09] MEDS ORDERED: DEXMEDETOMIDINE INJ 200 MCG in SODIUM CHLORIDE 0.9% INJ 50 ML IV PRN (22:30)
[2017-08-09] MEDS ORDERED: ACETAMINOPHEN 650 MG SUPP RECTAL PRN (22:30)
[2017-08-09] MEDS ORDERED: MEPERIDINE HCL 25 MG/ML VIAL IV PUSH PRN (22:30)
[2017-08-09] MEDS ORDERED: hydrALAZINE HCL 20 MG/ML VIAL IV PUSH PRN (22:30)
[2017-08-09] MEDS ORDERED: MAGNESIUM SULFATE INJ 2 GM in SODIUM CHLORIDE 0.9% INJ 100 ML IV PRN ×4 (22:30)
[2017-08-09] MEDS ORDERED: DOPamine 800 MG/500 ML INJ 500 ML IV PRN (22:30)
[2017-08-09] MEDS ORDERED: Post-op Orders (for Pharmacy) OTHER ONE (22:30)
[2017-08-09] MEDS ORDERED: oxyCODONE/ACETAMINOPHEN 5 MG/325 MG TAB PO PRN ×2 (22:30)
[2017-08-09] MEDS ORDERED: METOPROLOL TARTRATE 5 MG/5 ML VIAL IV PUSH PRN (22:30)
[2017-08-09] MEDS ORDERED: POTASSIUM CHLORIDE 20 MEQ CONTROLLED RELEASE TAB PO PRN ×2 (22:30)
[2017-08-09] MEDS ORDERED: NITROGLYCERIN-D5W 50 MG/250 ML 250 ML IV PRN (22:30)
[2017-08-09] MEDS ORDERED: SODIUM BICARBONATE 8.4% SOLN 50 MEQ/50 ML VIAL IV PUSH PRN ×2 (22:30)
[2017-08-09] MEDS ORDERED: RESP: ALBUTEROL 2.5 MG/IPRATROPIUM 0.5 MG NEB (PRN) NEB (22:30)
[2017-08-09] MEDS ORDERED: PHENYLEPHRINE INJ 40 MG in DEXTROSE 5% IN WATE 500 ML INJ 496 ML IV PRN ×2 (22:30)
[2017-08-09] MEDS: NITROGLYCERIN-DEXTROSE 5% 250 ML for hypertension IV PRN (22:45)
--- NOTE | 2017-08-09 22:49 | PD.OP ---
cc: Kailey Manzano MD Operative Report Date of Surgery: Aug 09, 2017 Preoperative Diagnosis: Postoperative Diagnosis: Procedure: 1. Emergent Aortic Root Replacement (Bentall Procedure) With [address]Delvin Valved Conduit 2. Coronary Artery Bypass Grafting (CABG) x 1, with Saphenous vein Graft to the Right Coronary Artery (RCA) 3. Left Femoral Arterial Cannulation 4. Left Leg Open Vein [place] Surgeon: Kailey Manzano Development Manager(s): Olinda Manzo Operation and Findings: PREPROCEDURE DIAGNOSES 1. Acute Ascending Aortic Dissection 2. Connective Tissue Disorder 3. Right Lower Extremity Numbness POSTPROCEDURE DIAGNOSES 1. Acute Ascending Aortic Dissection Involving the Aortic Root and Right Coronary Artery Ostium 2. Connective Tissue Disorder 3. Right Lower Extremity Numbness SURGICAL PROCEDURE 1. Emergent Aortic Root Replacement (Bentall Procedure) With [address]Delvin Valved Conduit 2. Coronary Artery Bypass Grafting (CABG) x 1, with Saphenous vein Graft to the Right Coronary Artery (RCA) 3. Left Femoral Arterial Cannulation 4. Left Leg Open Vein [place] SURGEON Kailey Manzano MD SERGING MACHINE OPERATOR OLMAN Martinez ANESTHESIA General endotracheal TALENT MANAGEMENT SPECIALIST MARCOS Crane MD PREPARATION ChloraPrep. COUNTS Needle, sponge, and instrument counts were correct. DRAINS Two 32-Cymro mediastinal tubes. COMPLICATIONS None. INDICATIONS FOR PROCEDURE The patient is a 47-year-old with extensive family h/o Marfan's syndrome presenting with acute onset chest and back pain and CT evidence of ascending aortic dissection. She is being brought to the operating room emergently for surgical correction of her aortic pathology. PROCEDURE The patient was brought emergently to the operating room and placed supine on the OR table. Following the induction of adequate general endotracheal anesthesia, intraoperative TANNER was performed which revealed an ascending aortic dissection involving the ascending aorta and possibly the root with antegrade extension into the descending thoracic aorta. The patient was prepped and draped in the standard sterile fashion. A small incision was made in the left groin and the common femoral artery dissected free. 5000 units of IV heparin were administered and a purse-string suture of 5-0 Prolene placed on the anterior wall. The femoral artery was cannulated with a 17 Fr Catheter using standard Seldinger technique. A median sternotomy was performed. The pericardium was opened and the patient was heparinized for cardiopulmonary bypass. Two staged venous cannula was inserted into the right atrium. Antegrade and ostial Custodiol cardoplegia was used and dosed every 75-80minutes. The ascending aorta and arch were dissected out. The left ventricle was vented through the right superior pulmonary vein. The patient was placed on cardiopulmonary bypass. An aortic cross-clamp was applied and the heart was arrested using cold Custodiol antegrade cardioplegia which was administered into the root and subsequently directly into the coronary ostia. A transverse aortotomy was performed above the sinotubular ridge and handheld cannula was then used to give cardioplegia down each coronary ostia. The valve was found to be trileaflet. The aortic root was aneurysmal from the sinuses of Valsalva to the proximal arch. The dissection entry point was identified at the level of the root and extending into the right coronary ostia. Aortic valve was excised sharply and the annulus copiously irrigated with cold saline. The aorta was transected just proximal to the arch distally and resected down to the aortic annulus. The coronary arteries were taken as Carrel buttons and carefully protected. The annulus was sized to a 25 Saint Delvin mechanical valve conduit which was seated using interrupted 2-0 Tycron pledgeted horizontal mattress sutures onto the annulus. After seating the valve and securing the sutures, an eye cautery unit was used to make an opening in the graft to locate the left main coronary artery button. The left coronary artery was approximated to the graft using a running 5-0 prolene. The graft was measured for length and transected. The distal graft was beveled to accommodate the hemiarch. The distal anastomosis was accomplished using a running 4-0 prolene suture. This was reinforced with interrupted 4-0 Prolene horizontal mattress sutures due to the poor tensile strength of the rosebud tissue. Antegrade cardioplegia was administered to check these anastomoses for hemostasis. Pledgeted 4-0 prolene sutures were used as necessary to control bleeding. An opening was then made in the graft anteriorly to locate the right coronary button. This was approximated to the graft using a running 5-0 prolene suture. Inspection of this area, revealed the RCA to be very friable and with very poor tensile strength with the dissection extending into it, therefore, plans were made to bypass the RCA. A segment of greater saphenous vein was harvested from the left thigh and the main distal RCA bypassed using 7-0 Prolene in a running fashion. The proximal anastomosis was performed to the graft using 5-0 Prolene. The rosebud RCA ostium was oversewed with two layers of 4-0 Prolene. Bioglue was used to seal needle holes. The patient was placed in steep Trendelenburg position. The aorta and left ventricle were vented and the aortic cross-clamp was removed. The heart resumed a tachycardic rhythm which eventually converted to a sinus rhythm after several minutes. The heart was filled allowed to eject. The aortic valve replacement was then assessed by intraoperative TANNER. The valve was found to be well seated with no perivalvular leak. Left ventricular function was noted to be mildly dysfunctional with good RV function. The septum was a little hypokinetic. The patient was weaned from cardiopulmonary bypass. Protamine was administered to reverse the heparin and all cannulae were removed without incident. 2 32-Fr chest tubes were placed. The operative field was then examined again for hemostasis which was obtained using electrocautery. The pericardium was reapproximated in the midline. The wound was then closed in layers by approximating the sternal tables with interrupted number 6 stainless steel wires following which the remaining tissues were closed in 3 layers. The wound was copiously irrigated. Similarly, the vein harvest site and the left femoral arterial cannulation sites were closed in two layers. All sponge and instrument counts were correct at the close of the procedure and the patient was transported the CVICU in stable, but guarded condition. Kailey Manzano MD Aug 09, 2017 22:49
[2017-08-09] MEDS ORDERED: fentaNYL CITRATE 250 MCG/5 ML AMP ONE (22:53)
[2017-08-09] MEDS ORDERED: MIDAZOLAM HCL 2 MG/2 ML VIAL ONE (22:53)
[2017-08-09] MEDS ORDERED: PROPOFOL 500 MG/50 ML INJ 50 ML ONE (22:59)
[2017-08-09] MEDS ORDERED: LACTATED RINGER'S 1000 ML INJ 500 ML IV PRN (23:00)
[2017-08-09] MEDS ORDERED: HEPARIN SODIUM - IV 10,000 UNITS/10 ML VIAL ONE (23:23)
[2017-08-09] MEDS: ACETAMINOPHEN 1000 MG/100 ML 100 ML IV SCH (23:36)
[2017-08-09] MEDS: CLEVIDIPINE INJ 50 ML IV PRN (23:37)
[2017-08-10] VITALS (18 sets, daily range): BP systolic 89–123; BP diastolic 34–51; PULSE 72–104; RESP 12–17; TEMP 97–100; O2SAT 94–99
[2017-08-10] MEDS ORDERED: NITROGLYCERIN-DEXTROSE 5% 250 ML for hypertension IV PRN (00:15)
--- NOTE | 2017-08-10 00:53 | RADRPT ---
EXAM DATE/TIME: 08/10/2017 00:38 [facility] COMPARISON: CTA THORACIC ABDOMINAL AORTA W 3D RECON, August 09, 2017, 11:54. INDICATIONS : Post CABG. MEDICAL HISTORY : None. SURGICAL HISTORY : None. ENCOUNTER: Initial ACUITY: 2 days PAIN SCORE: 0/10 LOCATION: Bilateral chest FINDINGS: Portable AP view of the chest demonstrates a normal-sized cardiac silhouette in this patient post med brii sternotomy and valve replacement. Endotracheal tube is present with distal tip measuring 2.8 cm f rom the funmilayo. Nasogastric tube courses beyond the GE junction. There is a mediastinal drain and rig ht chest tube present. No pneumothorax is visualized. Lungs are underinflated. There is hazy opacity at the right base. CONCLUSION: 1. Expected changes following recent median sternotomy. Right chest tube is present and no pneumothor ax is seen. 2. Hazy opacity at the right lung base could represent atelectasis given the underinflation or could represent airspace consolidation or small pleural fluid. Ruddy Mitchell MD on August 10, 2017 at 0:49 Board Certified Radiologist. This report was verified electronically.
[2017-08-10] MEDS ORDERED: PROPOFOL 500 MG/50 ML INJ 50 ML ONE (01:24)
[2017-08-10] MEDS: FAMOTIDINE 20 MG/2 ML VIAL IV PUSH SCH ×3 (01:38→20:10)
[2017-08-10] MEDS: DOCUSATE SODIUM 50 MG/SENNA 8.6 MG TAB PO SCH ×3 (01:38→21:00)
[2017-08-10] MEDS: ceFAZolin 2 GM PREMIX 50 ML IV SCH ×3 (01:39→17:27)
[2017-08-10] MEDS: SODIUM CHLORIDE 0.9% FLUSH 10 ML FLUSH IV FLUSH SCH ×2 (01:39→20:10)
[2017-08-10] MEDS: CLEVIDIPINE INJ 50 ML IV PRN ×6 (02:19→23:15)
[2017-08-10] MEDS: POTASSIUM CHLOR 20 MEQ PREMIX 100 ML IV PRN ×2 (02:46→04:42)
[2017-08-10] MEDS: PROPOFOL 1000 MG/100 ML IV PRN ×2 (03:04→07:59)
[2017-08-10] MEDS: RESP: ALBUTEROL 2.5 MG/IPRATROPIUM 0.5 MG NEB (SCH) NEB ×4 (03:39→20:50)
[2017-08-10] MEDS: CHLORHEXIDINE GLUCONATE 2 % 1 PACK (2 CLOTHS) TOP SCH (04:00)
[2017-08-10] MEDS ORDERED: fentaNYL DRIP 250 ML IV PRN (05:00)
[2017-08-10] MEDS: ACETAMINOPHEN 1000 MG/100 ML 100 ML IV SCH ×3 (05:05→17:01)
[2017-08-10 05:19] LABS: AUTOMATED NEUTROPHIL # 6.2 TH/MM3 (1.8-7.7); HEMOGLOBIN 8.7 GM/DL (11.6-15.3); LYMPH % 5.3 % (9.0-44.0); LYMPHOCYTE # 0.4 TH/MM3 (1.0-4.8); MEAN CELL VOLUME 89.6 FL (80.0-100.0); MEAN CORPUSCULAR HEMOGLOBIN 31.2 PG (27.0-34.0); MEAN CORPUSCULAR HGB CONC 34.9 % (32.0-36.0); MEAN PLATELET VOLUME 7.6 FL (7.0-11.0); MONO % 6.2 % (0.0-8.0); MONOCYTE # 0.4 TH/MM3 (0-0.9); NEUT % 88.5 % (16.0-70.0); PLATELET COUNT 112 TH/MM3 (150-450); RED BLOOD COUNT 2.79 MIL/MM3 (4.00-5.30); RED CELL DISTRIBUTION WIDTH 13.1 % (11.6-17.2)
[2017-08-10 05:32] LABS: INTERNATIONAL NORMALIZED RATIO 1.1 RATIO; PROTHROMBIN TIME - PATIENT 11.6 SEC (9.8-11.6)
[2017-08-10] MEDS: PANTOPRAZOLE SOD 40 MG DELAYED RELEASE TAB PO SCH (05:43)
[2017-08-10 05:52] LABS: ALBUMIN 2.8 GM/DL (3.4-5.0); ALKALINE PHOSPHATASE 40 U/L (45-117); ALT (GPT) 21 U/L (10-53); AST (GOT) 45 U/L (15-37); BICARBONATE 27.5 MEQ/L (21.0-32.0); BLOOD UREA NITROGEN 15 MG/DL (7-18); CALCIUM 8.9 MG/DL (8.5-10.1); CHLORIDE 106 MEQ/L (98-107); CREATININE 0.74 MG/DL (0.50-1.00); GLOMERULAR FILTRATION RATE 84 ML/MIN (>89); GLUCOSE,RANDOM 102 MG/DL (74-106); MAGNESIUM 2.5 MG/DL (1.5-2.5); PHOSPHORUS 2.3 MG/DL (2.5-4.9); SODIUM (NA) 142 MEQ/L (136-145); TOTAL BILIRUBIN ADULT 2.2 MG/DL (0.2-1.0); TOTAL PROTEIN 5.2 GM/DL (6.4-8.2)
--- NOTE | 2017-08-10 06:26 | RADRPT ---
EXAM DATE/TIME: 08/10/2017 05:18 [facility] COMPARISON: CHEST SINGLE AP, August 10, 2017, 0:38. INDICATIONS : Post CABG, short of breath. MEDICAL HISTORY : None. SURGICAL HISTORY : CABG. ENCOUNTER: Subsequent ACUITY: 2 days PAIN SCORE: 0/10 LOCATION: Bilateral chest FINDINGS: Portable AP view of the chest demonstrates a normal-sized cardiac silhouette in this patient post med brii sternotomy and valve replacement. Endotracheal tube, left subclavian central line, nasogastric tu be, mediastinal drain, and right chest tube remain present. Multiple lines overlie the patient. No pn eumothorax is identified. There is atelectasis versus consolidation at the lung bases. CONCLUSION: 1. Tubes and lines are unchanged. Right chest tube remains present and no pneumothorax is seen. 2. There is mild atelectasis versus consolidation at the lung bases. Ruddy Mitchell MD on August 10, 2017 at 6:23 Board Certified Radiologist. This report was verified electronically.
[2017-08-10] MEDS: CHLORHEXIDINE 0.12% (ORAL KIT) 15 ML CUP MT SCH ×2 (07:59→20:00)
[2017-08-10] MEDS: ASPIRIN 81 MG CHEW TAB PO SCH (08:12)
[2017-08-10] MEDS: AMIODARONE 200 MG TAB PO SCH ×2 (08:12→21:04)
--- NOTE | 2017-08-10 08:19 | HHI.CCPN ---
Subjective Remarks/Hospital Course This is a 47-year-old female, that presented to [facility] ED, arriving from work with complaints chest pain that radiated to her back and neck. Per report she also complained of weakness and numbness of her right lower extremity, patient was accompanied by her coworker. Past medical history significant for Marfan's which she reported to me, and stated her father had an aortic aneurysm and her son also has Marfan's. Imaging studies were performed which revealed an extensive Steele type A aortic dissection. Esmolol infusion was initiated. CT surgery was consulted, and the patient was transported to the OR. Critical care medicine was consulted. Subjective: 08/10: The patient underwent AVR with aortic root replacement yesterday, cardiac bypass time approximately 307 minutes. Estimated blood loss was noted to be 2500 cc. Intraoperatively the patient received 2 units of FFP, 2 units of packed red blood cells, 2 units of platelets, 1 unit of cryoprecipitate. Upon admission to CV ICU at approximately 2200 hrs., the patient received additional blood products to include 1 unit of cryoprecipitate, 1 unit of platelets, 4 units of FFP, coagulation within normal limits this a.m. patient continues on tight blood pressure control currently with nitroglycerin and Cleviprex infusions. The patient remains intubated and adequately sedated with propofol and fentanyl infusions, hemodynamically stable. Insulin infusion currently off , with glucose levels being tightly controlled. Postoperatively chest tube drainage since admission to CVICU overnight approximately 270 cc, and patient has adequate urinary output. Objective Vital Signs Date Time Temp Pulse Resp B/P (MAP) Pulse Ox O2 Delivery O2 Flow Rate FiO2 08/10/17 07:00 99.6 81 12 92/34 (53) 97 89/44 (59) 08/10/17 04:00 50 08/09/17 13:51 Room Air Intake and Output 08/10/17 08/10/17 08/10/17 07:59 15:59 23:59 Intake Total 2790 ml Output Total 1020 ml Balance 1770 ml Result Diagram: 08/10/17 0425 08/10/17 0425 Imaging Last Impressions Chest X-Ray 08/10/17 0500 Signed Impressions: Service Date/Time: Thursday, August 10, 2017 05:18 - CONCLUSION: 1. Tubes and lines are unchanged. Right chest tube remains present and no pneumothorax is seen. 2. There is mild atelectasis versus consolidation at the lung bases. Ruddy Mitchell MD Aorta CTA 08/09/17 1128 Signed Impressions: Service Date/Time: Wednesday, August 09, 2017 11:54 - CONCLUSION: 1. Extensive Seferino type A aortic dissection. The aneurysm begins at the aortic root and extends into both common carotid arteries with significant narrowing of the true lumens as well as high grade stenosis versus short segment occlusion of the right common iliac artery. The right coronary artery arises from the false lumen and the left the true lumen. See full discussion above. 2. No hemo- pericardium. 3. I spoke with Dr. Lau. Jose Kinsey Jr., MD Head CT 08/09/17 0000 Signed Impressions: Service Date/Time: Wednesday, August 09, 2017 11:54 - CONCLUSION: No acute disease. Henok Issa MD Last Impressions Aorta CTA 08/09/17 1128 Signed Impressions: Service Date/Time: Wednesday, August 09, 2017 11:54 - CONCLUSION: 1. Extensive Seferino type A aortic dissection. The aneurysm begins at the aortic root and extends into both common carotid arteries with significant narrowing of the true lumens as well as high grade stenosis versus short segment occlusion of the right common iliac artery. The right coronary artery arises from the false lumen and the left the true lumen. See full discussion above. 2. No hemo- pericardium. 3. I spoke with Dr. [place]. Jose Kinsey Jr., MD Head CT 08/09/17 0000 Signed Impressions: Service Date/Time: Wednesday, August 09, 2017 11:54 - CONCLUSION: No acute disease. Henok Issa MD Procedures 08/09-AVR with aortic root replacement, CABG 1 with saphenous vein graft to RCA Objective Remarks Infusions: Cleviprex 3mg/hr Nitroglycerin 50mcgs Propofol 50 mcgs/kg/min Fentanyl 90 mcgs/hr GENERAL: This is a well-developed well-nourished female intubated and sedated SKIN: Warm and dry HEAD: Atraumatic. Normocephalic. EYES: Pupils equal and round. 3 mm and brisk. No scleral icterus. No injection or drainage. ENT: No nasal bleeding or discharge. Mucous membranes pink and moist. NECK: Trachea midline. No JVD. Orotracheally intubated 7.0 @ 25cm @lip CARDIOVASCULAR: Regular rate and rhythm. No murmur appreciated. RESPIRATORY: No accessory muscle use. Clear to auscultation. Breath sounds equal bilaterally. Currently on nasal cannula at 2 L GASTROINTESTINAL: Abdomen soft, non-tender, nondistended. Hypoactive bowel sounds MUSCULOSKELETAL:B/L radial pulses palpable,Left DP palpable, Right DP biphasic dipplerable NEUROLOGICAL: Intubated and sedated. GCS 3T. Prior to surgery -No obvious cranial nerve deficits. RLE muscle strength 4/5 with decreased sensation compare to left. All other extremity muscle strength 5/5. Normal speech. Urinary Catheter: Yes Assessment to: Continue May insert reason: Measure Accurate Output Date of Insertion: Aug 09, 2017 Vascular Central Line Catheter: Yes Assessment to: Continue Date of Insertion: Aug 09, 2017 Line: Central Venous Catheter Side: Left Location: Subclavian Reason for Continuation Vasoactive medication administration, CVP monitoring A/P Problem List: (1) Aortic aneurysm with dissection ICD Code: I71.00 - Dissection of unspecified site of aorta Status: Acute Assessment and Plan Plan by systems: Neurologic: Postoperative pain Neurochecks per ICU protocol Propofol currently at 50 mcgs and fentanyl 90 mcgs to maintain analgesia and ventilator synchrony Hold daily sedation vacation until clinically indicated per Dr. Manzano Multimodal analgesia postop for pain control Respiratory: Maintain O2 saturation 92% Currently on PRVC/ AC 12/550/5/0.50- decrease to 500cc for IBW Duo nebs every 6 hours scheduled, and every 2 hours when necessary Ventilator bundle Will begin CPAP trials upon recommendations of CTS surgeon ABGs and chest x-rays as clinically indicated 1039 S/P Extubation SBT parameters-RSBI 47, FVC 1960, TV 526, NIF -30, RR 17 Cardiovascular S/P emergent aortic root replacement, CABG 1 with SVG to RCA secondary to acute ascending aortic dissection involving aortic root and RCA ostium Maintain MAP at 60mmhg- currently on Cleviprex and nitroglycerin In the OR-patient transfused 2 FFP, 2 PRBC, 1 cryoprecipitate, 2 platelets. Postoperatively patient transfused 1 cryoprecipitate,1 platelet ,4 FFP. EBL 2500cc, Bypass time 307 mins Pre op echo-ES 60-65%, no RWMA, moderatesevere dilated ,ascending thoracic aortic aneurysm with dissection beginning at aortic root CVP trend- 12 Renal: Maintain May at this time -- Strict I/Os FEN/GI: Electrolyte derangement Maintain NPO Replete electrolytes per ICU protocol Monitor BMP Zofran for nausea Bowel regimen Heme/ID: Monitor CBC Hemoglobin stable 8.7 Endocrine: Glucose monitoring per ICU protocol, low dose regimen Currently on insulin infusion monitoring glucose levels every 2 hours -- SSI Prophylaxis: GI Prophylaxis Famotidine DVT Prophylaxis -- SCDs Lines: Currently peripheral IV's. Left subclavian TL with Cordis 08/09, right radial arterial line, right femoral arterial line 08/09 Dispo: my billing statement This patient remains critically ill with one or more organ systems which are or may become a threat to life. I have spent in excess of 39 minutes discontinuously in the care and management of this patient. This time is exclusive of procedures, and includes, but is not limited to, evaluation of the patient, review of the medical record, discussions with family, consultants, nursing staff, or respiratory therapy, and documentation in the medical record. Physician Kitty Franks MD Aug 10, 2017 08:19
[2017-08-10] MEDS: KETOROLAC TROMETHAMINE 30 MG/ML (IVP) VIAL IV PUSH PRN ×3 (08:34→21:10)
[2017-08-10] MEDS: MORPHINE SULFATE 2 MG/ML INJ IV PRN ×6 (08:35→23:31)
[2017-08-10] MEDS ORDERED: DEXMEDETOMIDINE INJ 200 MCG in SODIUM CHLORIDE 0.9% INJ 50 ML IV PRN (09:00)
[2017-08-10] MEDS: METOPROLOL TARTRATE 25 MG TAB PO SCH ×2 (09:52→21:04)
[2017-08-10] MEDS ORDERED: PILL SPLITTER OTHER PRN (10:00)
[2017-08-10] MEDS: NITROGLYCERIN-DEXTROSE 5% 250 ML for hypertension IV PRN (12:47)
--- NOTE | 2017-08-10 15:29 | PD.CAR.PN ---
CVT Progress Note Subjective/Hospital Course: 47-year-old female brought in by EVAC from work with complaint of pain between her shoulder blades, both side of her neck, also some weakness in her right leg and numbness in her right foot that started about 30 minutes prior to arrival. She had a significant difference in the blood pressures in both of her arms, the right being lower than the left. They did a stat CTA of the aorta, which showed an extensive Standford type A aortic dissection. The aneurysm begins at the aortic root, extending into both common carotids with significant narrowing of the true lumens as well as high-grade stenosis versus short segment occlusion of the right common iliac. The right coronary artery arises from the false lumen and left, the true lumen. No hemopericardium. We were immediately consulted to evaluate for repair of emergent ascending aortic aneurysm. Additional finding of left lower ext numbness, decreased pulses right leg and right radial artery PMH: Marfan's syndrome, rosacea ( strong family hx of Marfan's syndrome surgery: 1. Emergent Aortic Root Replacement ([facility] Procedure) With [address]Delvin Valved Conduit 2. Coronary Artery Bypass Grafting (CABG) x 1, with Saphenous vein Graft to the Right Coronary Artery (RCA) 3. Left Femoral Arterial Cannulation 4. Left Leg Open Vein Hobe Sound crystalloid 4500cc, EBL 2500cc, cell saver 2170 2 units PRBC, 2 cryo, 6 FFP, 3 PLT pump time 307min Mean BP kept at 60 during the night ( with cleviprex) 3/6 EKG shows NSR no acute changes improved circulation right hand and foot , fair cap refill weaned with precedex and finally extubated at 10:38 am to nasal cannula pt following commands, answering appropriately , moving all extremities painful with some nausea wean cleviprex for SBP 120, low dose BB added Objective: GENERAL: A&O x 3 SKIN: Warm and dry. right hand paler than left . warm fair cap refill, prevena dressing to chest HEAD: Atraumatic. Normocephalic. EYES: Pupils equal and round. No scleral icterus. No injection or drainage. ENT: No nasal bleeding or discharge. Mucous membranes pink and moist. NECK: Trachea midline. No JVD. CARDIOVASCULAR: Regular rate and rhythm. B/L radial pulses palpable,Left DP palpable, Right DP biphasic doppler RESPIRATORY: No accessory muscle use. Clear to auscultation. Breath sounds equal bilaterally. GASTROINTESTINAL: Abdomen soft, non-tender, nondistended. Hepatic and splenic margins not palpable. MUSCULOSKELETAL: Extremities without clubbing, cyanosis, or edema. No obvious deformities. NEUROLOGICAL: Awake and alert. No obvious cranial nerve deficits. still has some numbness right leg . Five out of 5 muscle strength in the arms and legs. Normal speech. PSYCHIATRIC: Appropriate mood and affect; insight and judgment normal. Vital Signs Date Time Temp Pulse Resp B/P (MAP) Pulse Ox O2 Delivery O2 Flow Rate FiO2 08/10/17 12:47 90 112/51 08/10/17 12:45 92 112/51 08/10/17 11:00 99.1 93 14 99/44 (62) 97 108/47 (67) 08/10/17 11:00 97 08/10/17 11:00 97 Nasal Cannula 4.00 08/10/17 10:45 99 Nasal Cannula 4.00 08/10/17 10:38 97 Nasal Cannula 4 08/10/17 08:56 98 50 08/10/17 08:56 Nasal Cannula 50 08/10/17 08:26 97 50 08/10/17 08:07 98 40 08/10/17 08:00 50 08/10/17 07:00 99.6 81 12 92/34 (53) 97 89/44 (59) 08/10/17 07:00 85 08/10/17 06:55 89 83/43 08/10/17 04:45 98.5 08/10/17 04:00 50 08/10/17 03:48 98 50 08/10/17 03:38 75 08/10/17 03:38 97.0 76 12 106/47 (66) 98 98/49 (65) 08/10/17 02:19 76 98/49 08/10/17 02:19 69 106/48 08/10/17 01:34 72 100/49 08/10/17 01:00 70 105/47 08/10/17 00:56 98 50 08/10/17 00:49 74 12 104/48 99 08/10/17 00:22 72 12 91/41 99 08/09/17 23:59 75 12 100/43 97 08/09/17 23:37 80 125/65 08/09/17 23:30 12 127/69 99 08/09/17 23:00 50 08/09/17 23:00 80 08/09/17 23:00 95.0 80 12 94/47 (63) 98 93/43 (60) 08/09/17 22:45 97 50 08/09/17 22:45 80 107/55 08/09/17 15:10 Labs: Laboratory Tests Test 08/10/17 04:25 08/10/17 10:14 White Blood Count 7.0 TH/MM3 (4.0-11.0) Red Blood Count 2.79 MIL/MM3 (4.00-5.30) Hemoglobin 8.7 GM/DL (11.6-15.3) Hematocrit 25.0 % (35.0-46.0) Mean Corpuscular Volume 89.6 FL (80.0-100.0) Mean Corpuscular Hemoglobin 31.2 PG (27.0-34.0) Mean Corpuscular Hemoglobin Concent 34.9 % (32.0-36.0) Red Cell Distribution Width 13.1 % (11.6-17.2) Platelet Count 112 TH/MM3 (150-450) Mean Platelet Volume 7.6 FL (7.0-11.0) Neutrophils (%) (Auto) 88.5 % (16.0-70.0) Lymphocytes (%) (Auto) 5.3 % (9.0-44.0) Monocytes (%) (Auto) 6.2 % (0.0-8.0) Eosinophils (%) (Auto) 0.0 % (0.0-4.0) Basophils (%) (Auto) 0.0 % (0.0-2.0) Neutrophils # (Auto) 6.2 TH/MM3 (1.8-7.7) Lymphocytes # (Auto) 0.4 TH/MM3 (1.0-4.8) Monocytes # (Auto) 0.4 TH/MM3 (0-0.9) Eosinophils # (Auto) 0.0 TH/MM3 (0-0.4) Basophils # (Auto) 0.0 TH/MM3 (0-0.2) CBC Comment DIFF FINAL Differential Comment Prothrombin Time 11.6 SEC (9.8-11.6) Prothromb Time International Ratio 1.1 RATIO Blood Urea Nitrogen 15 MG/DL (7-18) Creatinine 0.74 MG/DL (0.50-1.00) Random Glucose 102 MG/DL (74-106) Total Protein 5.2 GM/DL (6.4-8.2) Albumin 2.8 GM/DL (3.4-5.0) Calcium Level 8.9 MG/DL (8.5-10.1) Phosphorus Level 2.3 MG/DL (2.5-4.9) Magnesium Level 2.5 MG/DL (1.5-2.5) Alkaline Phosphatase 40 U/L (45-117) Aspartate Amino Transf (AST/SGOT) 45 U/L (15-37) Alanine Aminotransferase (ALT/SGPT) 21 U/L (10-53) Total Bilirubin 2.2 MG/DL (0.2-1.0) Sodium Level 142 MEQ/L (136-145) Potassium Level 4.1 MEQ/L (3.5-5.1) Chloride Level 106 MEQ/L (98-107) Carbon Dioxide Level 27.5 MEQ/L (21.0-32.0) Anion Gap 9 MEQ/L (5-15) Estimat Glomerular Filtration Rate 84 ML/MIN (>89) Blood Gas Puncture Site SARA Blood Gas Patient Temperature 98.6 Blood Gas HCO3 24 mmol/L (22-26) Blood Gas Base Excess 0.7 mmol/L (-2-2) Blood Gas Oxygen Saturation 95 % (90-100) Arterial Blood pH 7.44 (7.380-7.420) Arterial Blood Partial Pressure CO2 37 mmHg (38-42) Arterial Blood Partial Pressure O2 101 mmHg (61-120) Arterial Blood Oxygen Content 14.4 Vol % (12.0-20.0) Arterial Blood Carboxyhemoglobin 1.4 % (0-4) Arterial Blood Methemoglobin 1.4 % (0-2) Blood Gas Hemoglobin 10.7 G/DL (12.0-16.0) Oxygen Delivery Device VENTILATOR Blood Gas Ventilator Setting [id number] Blood Gas Inspired Oxygen 50 % Result Diagram: 08/10/1742408/10/17424 Telemetry: NSR (1) Emergent Aortic Root Replacement ([facility] Procedure) With [address]Delvin Valved Conduit Plan: will need to start coumadin when chest tubes out wean cleviprex as tolerated on low dose BB extubated this am will need pt /ot (2) Aortic aneurysm with dissection (3) Blood loss anemia Plan: s/p multiple blood products (4) S/P CABG x 1 Plan: on ASA , BB amiodarone eval for statin Rosalind Rodrigues Aug 10, 2017 15:28
[2017-08-10] MEDS: PROCHLORPERAZINE INJ 10 MG/2 ML VIAL IV PUSH PRN ×2 (15:45→20:10)
[2017-08-10] MEDS: ONDANSETRON HCL 4 MG/2 ML VIAL IV PUSH PRN ×2 (17:38→23:23)
--- NOTE | 2017-08-10 18:46 | EKG ---
Date Performed: 08/09/2017 Time Performed: 11:29:05 PTAGE: 47 years EKG: Sinus rhythm NORMAL ECG INTERPRETATION BASED ON A DEFAULT AGE OF 41 YEARS NO PREVIOUS TRACING DOCTOR: Levy Rossi Interpretating Date/Time 08/10/2017 18:43:00
--- NOTE | 2017-08-10 18:56 | EKG ---
Date Performed: 08/10/2017 Time Performed: 05:39:28 PTAGE: 47 years EKG: Sinus rhythm Normal ECG Since the prior tracing, there has been no significant change PREVIOUS TRACING : 08/09/2017@ 1129 DOCTOR: Levy Rossi Interpretating Date/Time 08/10/2017 18:55:07
[2017-08-11] VITALS (19 sets, daily range): BP systolic 94–145; BP diastolic 42–65; PULSE 90–113; RESP 16–19; TEMP 97.8–98.6; O2SAT 91–100
[2017-08-11] MEDS: MORPHINE SULFATE 2 MG/ML INJ IV PRN ×4 (01:25→06:12)
[2017-08-11] MEDS: CLEVIDIPINE INJ 50 ML IV PRN ×3 (01:25→06:13)
[2017-08-11] MEDS: ceFAZolin 2 GM PREMIX 50 ML IV SCH ×2 (01:25→09:39)
[2017-08-11] MEDS: PROCHLORPERAZINE INJ 10 MG/2 ML VIAL IV PUSH PRN ×2 (01:48→07:48)
[2017-08-11] MEDS: RESP: ALBUTEROL 2.5 MG/IPRATROPIUM 0.5 MG NEB (SCH) NEB ×5 (02:54→19:24)
[2017-08-11] MEDS: KETOROLAC TROMETHAMINE 30 MG/ML (IVP) VIAL IV PUSH PRN ×2 (03:19→18:36)
[2017-08-11] MEDS: CHLORHEXIDINE GLUCONATE 2 % 1 PACK (2 CLOTHS) TOP SCH (04:00)
[2017-08-11] MEDS: ACETAMINOPHEN/HYDROcodone 325 MG/7.5 MG TAB PO PRN ×5 (04:36→19:49)
[2017-08-11 04:58] LABS: HEMATOCRIT 23.7 % (35.0-46.0); HEMOGLOBIN 8.3 GM/DL (11.6-15.3); MEAN CELL VOLUME 89.5 FL (80.0-100.0); MEAN CORPUSCULAR HEMOGLOBIN 31.5 PG (27.0-34.0); MEAN CORPUSCULAR HGB CONC 35.2 % (32.0-36.0); MEAN PLATELET VOLUME 8.2 FL (7.0-11.0); PLATELET COUNT 96 TH/MM3 (150-450); RED BLOOD COUNT 2.65 MIL/MM3 (4.00-5.30); RED CELL DISTRIBUTION WIDTH 13.5 % (11.6-17.2); WHITE BLOOD COUNT 10.5 TH/MM3 (4.0-11.0)
--- NOTE | 2017-08-11 04:59 | RADRPT ---
EXAM DATE/TIME: 08/11/2017 03:57 [facility] COMPARISON: CHEST SINGLE AP, August 10, 2017, 0:38. CHEST SINGLE AP, August 10, 2017, 5:18. INDICATIONS : Short of breath. MEDICAL HISTORY : None. SURGICAL HISTORY : CABG. ENCOUNTER: Subsequent ACUITY: 3 days PAIN SCORE: 0/10 LOCATION: Bilateral Chest FINDINGS: Portable AP view of the chest demonstrates a normal-sized cardiac silhouette in this patient post med brii sternotomy and valve replacement. Left subclavian central line, mediastinal drain, and right ches t tube remain present. The endotracheal tube and nasogastric tube have been removed. There is increas ed bilateral lower lungs on airspace opacities with possible pleural based opacity. No pneumothorax i s present. CONCLUSION: 1. Right chest tube remains present and the pneumothorax is visualized. 2. Increased bilateral lower lung zone opacities which could represent pleural effusions with associa adarsh volume loss and/or airspace consolidation. Ruddy Mitchell MD on August 11, 2017 at 4:56 Board Certified Radiologist. This report was verified electronically.
[2017-08-11] MEDS: PANTOPRAZOLE SOD 40 MG DELAYED RELEASE TAB PO SCH (05:23)
[2017-08-11] MEDS: ONDANSETRON HCL 4 MG/2 ML VIAL IV PUSH PRN (05:23)
[2017-08-11 05:27] LABS: BICARBONATE 25.9 MEQ/L (21.0-32.0); CALCIUM 7.6 MG/DL (8.5-10.1); CREATININE 0.68 MG/DL (0.50-1.00); PHOSPHORUS 3.4 MG/DL (2.5-4.9)
[2017-08-11] MEDS: CHLORHEXIDINE 0.12% (ORAL KIT) 15 ML CUP MT SCH (07:37)
[2017-08-11] MEDS: METOPROLOL TARTRATE 25 MG TAB PO SCH ×2 (07:48→19:59)
[2017-08-11] MEDS: SODIUM CHLORIDE 0.9% FLUSH 10 ML FLUSH IV FLUSH SCH ×2 (08:55→20:00)
[2017-08-11] MEDS: AMIODARONE 200 MG TAB PO SCH ×2 (08:55→19:59)
[2017-08-11] MEDS: DOCUSATE SODIUM 50 MG/SENNA 8.6 MG TAB PO SCH (08:55)
[2017-08-11] MEDS: FAMOTIDINE 20 MG/2 ML VIAL IV PUSH SCH (08:55)
[2017-08-11] MEDS: ASPIRIN 81 MG CHEW TAB PO SCH (08:56)
[2017-08-11] MEDS ORDERED: METOPROLOL TARTRATE 25 MG TAB PO ONE (09:30)
[2017-08-11] MEDS ORDERED: DEXTROSE 50% IN WATER 50 ML VIAL(D50) IV PUSH PRN (09:45)
[2017-08-11] MEDS ORDERED: GLUCAGON 1 MG/ML VIAL OTHER PRN (09:45)
[2017-08-11] MEDS: DOCUSATE SODIUM 100 MG CAP PO SCH ×2 (09:45→20:00)
[2017-08-11] MEDS: METOCLOPRAMIDE HCL 10 MG/2 ML VIAL IV PUSH SCH ×2 (10:00→18:32)
[2017-08-11] MEDS: INSULIN ASPART SUPPLEMENTAL SCALE SQ SCH ×4 (10:00→22:00)
--- NOTE | 2017-08-11 13:03 | HHI.CCPN ---
Subjective Remarks/Hospital Course This is a 47-year-old female, that presented to [facility] ED, arriving from work with complaints chest pain that radiated to her back and neck. Per report she also complained of weakness and numbness of her right lower extremity, patient was accompanied by her coworker. Past medical history significant for Marfan's which she reported to me, and stated her father had an aortic aneurysm and her son also has Marfan's. Imaging studies were performed which revealed an extensive Arnot type A aortic dissection. Esmolol infusion was initiated. CT surgery was consulted, and the patient was transported to the OR. Critical care medicine was consulted. Subjective: 08/10: The patient underwent AVR with aortic root replacement yesterday, cardiac bypass time approximately 307 minutes. Estimated blood loss was noted to be 2500 cc. Intraoperatively the patient received 2 units of FFP, 2 units of packed red blood cells, 2 units of platelets, 1 unit of cryoprecipitate. Upon admission to CV ICU at approximately 2200 hrs., the patient received additional blood products to include 1 unit of cryoprecipitate, 1 unit of platelets, 4 units of FFP, coagulation within normal limits this a.m. patient continues on tight blood pressure control currently with nitroglycerin and Cleviprex infusions. The patient remains intubated and adequately sedated with propofol and fentanyl infusions, hemodynamically stable. Insulin infusion currently off , with glucose levels being tightly controlled. Postoperatively chest tube drainage since admission to CVICU overnight approximately 270 cc, and patient has adequate urinary output. 7: Afebrile. Patient was extubated early yesterday morning continues on EZPAP , Acapella and incentive spirometry. O2 requirements significantly decreased now on 2 L via nasal cannula. Patient complains of pain 7/10. Yesterday the patient continued to have pain but with pain medication experience nausea Compazine was added to medication regimen with good results. Today the patient is up out of bed in chair consuming a clear liquid diet, complains of pain scale currently 6/10. Last night, patient was noted to have 300 cc out chest tube which occurred with change in position from recombinant in bed to standing. No further additional chest tube output was noted throughout the entire night. Objective Vital Signs Date Time Temp Pulse Resp B/P (MAP) Pulse Ox O2 Delivery O2 Flow Rate FiO2 08/11/17 12:37 94 117/56 (76) 96 08/11/17 11:00 Nasal Cannula 2.00 Humidified 08/11/17 11:00 98.5 16 08/10/17 08:56 50 Intake and Output 08/11/17 08/11/17 08/12/17 08:00 16:00 00:00 Intake Total 100 ml 440 ml Output Total 1150 ml 580 ml Balance -1050 ml -140 ml Result Diagram: 08/11/17 0425 08/11/17 0425 Other Results Laboratory Tests Test 08/11/17 05:38 Blood Gas Puncture Site ART LINE Blood Gas Patient Temperature 98.6 Blood Gas HCO3 24 mmol/L (22-26) Blood Gas Base Excess 1.3 mmol/L (-2-2) Blood Gas Oxygen Saturation 92 % (90-100) Arterial Blood pH 7.49 (7.380-7.420) Arterial Blood Partial Pressure CO2 32 mmHg (38-42) Arterial Blood Partial Pressure O2 69 mmHg (61-120) Arterial Blood Oxygen Content 10.4 Vol % (12.0-20.0) Arterial Blood Carboxyhemoglobin 1.0 % (0-4) Arterial Blood Methemoglobin 1.3 % (0-2) Blood Gas Hemoglobin 8.0 G/DL (12.0-16.0) Oxygen Delivery Device NASAL CANNULA Blood Gas Liter Flow 5 L/M Imaging Last Impressions Chest X-Ray 08/10/17 0500 Signed Impressions: Service Date/Time: Thursday, August 10, 2017 05:18 - CONCLUSION: 1. Tubes and lines are unchanged. Right chest tube remains present and no pneumothorax is seen. 2. There is mild atelectasis versus consolidation at the lung bases. Ruddy Mitchell MD Aorta CTA 08/09/17 1128 Signed Impressions: Service Date/Time: Wednesday, August 09, 2017 11:54 - CONCLUSION: 1. Extensive Arnot type A aortic dissection. The aneurysm begins at the aortic root and extends into both common carotid arteries with significant narrowing of the true lumens as well as high grade stenosis versus short segment occlusion of the right common iliac artery. The right coronary artery arises from the false lumen and the left the true lumen. See full discussion above. 2. No hemo- pericardium. 3. I spoke with Dr. Lancaster. Jose Kinsey Jr., MD Head CT 08/09/17 0000 Signed Impressions: Service Date/Time: Wednesday, August 09, 2017 11:54 - CONCLUSION: No acute disease. Henok Issa MD Last Impressions Aorta CTA 08/09/17 1128 Signed Impressions: Service Date/Time: Wednesday, August 09, 2017 11:54 - CONCLUSION: 1. Extensive Arnot type A aortic dissection. The aneurysm begins at the aortic root and extends into both common carotid arteries with significant narrowing of the true lumens as well as high grade stenosis versus short segment occlusion of the right common iliac artery. The right coronary artery arises from the false lumen and the left the true lumen. See full discussion above. 2. No hemo- pericardium. 3. I spoke with Dr. Lancaster. Jose Kinsey Jr., MD Head CT 08/09/17 0000 Signed Impressions: Service Date/Time: Wednesday, August 09, 2017 11:54 - CONCLUSION: No acute disease. Henok Issa MD Procedures 08/09-AVR with aortic root replacement, CABG 1 with saphenous vein graft to RCA Objective Remarks Infusions: Cleviprex 3mg/hr Nitroglycerin 50mcgs Propofol 50 mcgs/kg/min Fentanyl 90 mcgs/hr GENERAL: This is a well-developed well-nourished female intubated and sedated SKIN: Warm and dry HEAD: Atraumatic. Normocephalic. EYES: Pupils equal and round. 3 mm and brisk. No scleral icterus. No injection or drainage. ENT: No nasal bleeding or discharge. Mucous membranes pink and moist. NECK: Trachea midline. No JVD. Orotracheally intubated 7.0 @ 25cm @lip CARDIOVASCULAR: Regular rate and rhythm. No murmur appreciated. RESPIRATORY: No accessory muscle use. Clear to auscultation. Breath sounds equal bilaterally. Currently on nasal cannula at 2 L GASTROINTESTINAL: Abdomen soft, non-tender, nondistended. Hypoactive bowel sounds MUSCULOSKELETAL:B/L radial pulses palpable,Left DP palpable, Right DP biphasic dipplerable NEUROLOGICAL: Intubated and sedated. GCS 3T. Prior to surgery -No obvious cranial nerve deficits. RLE muscle strength 4/5 with decreased sensation compare to left. All other extremity muscle strength 5/5. Normal speech. Date of Insertion: Aug 09, 2017 Date of Insertion: Aug 09, 2017 Line: Central Venous Catheter Side: Left Location: Subclavian A/P Problem List: (1) Aortic aneurysm with dissection ICD Code: I71.00 - Dissection of unspecified site of aorta Status: Acute Assessment and Plan Plan by systems: Neurologic: Postoperative pain Neurochecks per ICU protocol Multimodal analgesia postop for pain control-Ketorolac, Morphine and fentanyl Respiratory: Maintain O2 saturation 92%-currently on 2 L/m nasal cannula Currently on PRVC/ AC 12/550/5/0.50- decrease to 500cc for IBW Duo nebs every 6 hours scheduled, and every 2 hours when necessary Aggressive pulmonary toileting Chest tube output overnight 450cc Cardiovascular S/P emergent aortic root replacement, CABG 1 with SVG to RCA secondary to acute ascending aortic dissection involving aortic root and RCA ostium Maintain MAP at 60mmhg- currently on Cleviprex and nitroglycerin In the OR 08/09-patient transfused 2 FFP, 2 PRBC, 1 cryoprecipitate, 2 platelets. Postoperatively patient transfused 1 cryoprecipitate,1 platelet ,4 FFP. EBL 2500cc, Bypass time 307 mins Pre op echo-ES 60-65%, no RWMA, moderatesevere dilated ,ascending thoracic aortic aneurysm with dissection beginning at aortic root Renal: -- Strict I/Os FEN/GI: Electrolyte derangement Liquid diet Replete electrolytes per ICU protocol Monitor BMP Zofran, Compazine for nausea-R 18 plans to add metoclopramide to medication regimen Bowel regimen Heme/ID: Monitor CBC Hemoglobin stable Endocrine: Glucose monitoring per ICU protocol, low dose regimen -- SSI Prophylaxis: GI Prophylaxis Famotidine DVT Prophylaxis -- SCDs Lines: Currently peripheral IV's. Left subclavian TL with Cordis 08/09, right radial arterial line, right femoral arterial line 08/09 Dispo: Level 3. Critical care medicine will sign off. Thank you for allowing participation in the care of this patient. Physician Kitty Franks MD Aug 11, 2017 13:03
--- NOTE | 2017-08-11 16:13 | PD.CAR.PN ---
CVT Progress Note Subjective/Hospital Course: 47-year-old female brought in by EVAC from work with complaint of pain between her shoulder blades, both side of her neck, also some weakness in her right leg and numbness in her right foot that started about 30 minutes prior to arrival. She had a significant difference in the blood pressures in both of her arms, the right being lower than the left. They did a stat CTA of the aorta, which showed an extensive [place] type A aortic dissection. The aneurysm begins at the aortic root, extending into both common carotids with significant narrowing of the true lumens as well as high-grade stenosis versus short segment occlusion of the right common iliac. The right coronary artery arises from the false lumen and left, the true lumen. No hemopericardium. We were immediately consulted to evaluate for repair of emergent ascending aortic aneurysm. Additional finding of left lower ext numbness, decreased pulses right leg and right radial artery PMH: Marfan's syndrome, rosacea ( strong family hx of Marfan's syndrome surgery: 1. Emergent Aortic Root Replacement ([facility] Procedure) With [address]Delvin Valved Conduit 2. Coronary Artery Bypass Grafting (CABG) x 1, with Saphenous vein Graft to the Right Coronary Artery (RCA) 3. Left Femoral Arterial Cannulation 4. Left Leg Open Vein [place] crystalloid 4500cc, EBL 2500cc, cell saver 2170 2 units PRBC, 2 cryo, 6 FFP, 3 PLT pump time 307min Mean BP kept at 60 during the night ( with cleviprex) 3/6 EKG shows NSR no acute changes improved circulation right hand and foot , fair cap refill weaned with precedex and finally extubated at 10:38 am to nasal cannula pt following commands, answering appropriately , moving all extremities painful with some nausea wean cleviprex for SBP 120, low dose BB added + 3/7 still having some nausea, amiodarone dose reduced add reglan BB increased , diuresing well weaned off insulin gtt PT/ OOB transfer to stepdown , leave chest tubes in start coumadin when chest tubes out / goal 2-2.5 Objective: GENERAL: A&O x 3 SKIN: Warm and dry. prevena to chest right groin and upper left medial thigh HEAD: Atraumatic. Normocephalic. EYES: Pupils equal and round. No scleral icterus. No injection or drainage. ENT: No nasal bleeding or discharge. Mucous membranes pink and moist. NECK: Trachea midline. No JVD. CARDIOVASCULAR: Regular rate and rhythm. RESPIRATORY: No accessory muscle use. Clear to auscultation. Breath sounds equal bilaterally. diminished in bases / ct drained 450cc/ 12 hrs GASTROINTESTINAL: Abdomen soft, non-tender, nondistended. Hepatic and splenic margins not palpable. MUSCULOSKELETAL: Extremities without clubbing, cyanosis, or edema. No obvious deformities. NEUROLOGICAL: Awake and alert. No obvious cranial nerve deficits. Motor grossly within normal limits. Five out of 5 muscle strength in the arms and legs. Normal speech. PSYCHIATRIC: Appropriate mood and affect; insight and judgment normal. Vital Signs Date Time Temp Pulse Resp B/P (MAP) Pulse Ox O2 Delivery O2 Flow Rate FiO2 08/11/17 15:27 98.4 100 19 128/59 (82) 98 08/11/17 13:16 100 Nasal Cannula 2.00 08/11/17 12:37 94 117/56 (76) 96 08/11/17 11:00 99 Nasal Cannula 2.00 Humidified 08/11/17 11:00 92 08/11/17 11:00 98.5 93 16 111/57 (75) 99 Arterial Line 08/11/17 08:04 94 Nasal Cannula 5.00 08/11/17 07:00 95 Nasal Cannula 4.00 Humidified 08/11/17 07:00 107 08/11/17 07:00 98.3 113 16 102/48 (66) 95 118/49 (72) 08/11/17 06:13 107 119/49 08/11/17 03:34 94 Nasal Cannula 6.00 Humidified 08/11/17 03:34 98.6 106 17 94/42 (59) 94 113/47 (69) 08/11/17 03:34 100 08/11/17 03:17 104 110/46 08/11/17 01:25 101 125/45 08/10/17 23:21 104 08/10/17 23:21 98.9 97 17 111/47 (68) 94 123/43 (69) 08/10/17 23:21 94 Nasal Cannula 5.00 Humidified 08/10/17 23:15 133 113/44 08/10/17 20:52 94 Nasal Cannula 5.00 08/10/17 20:11 100 115/41 08/10/17 19:45 94 Nasal Cannula 5.00 Humidified 08/10/17 19:45 98.9 97 17 111/47 (68) 94 123/43 (69) 08/10/17 19:00 94 08/10/17 18:34 101 113/41 08/10/17 16:46 97 Nasal Cannula 2.00 Labs: Laboratory Tests Test 08/11/17 04:25 08/11/17 05:38 White Blood Count 10.5 TH/MM3 (4.0-11.0) Red Blood Count 2.65 MIL/MM3 (4.00-5.30) Hemoglobin 8.3 GM/DL (11.6-15.3) Hematocrit 23.7 % (35.0-46.0) Mean Corpuscular Volume 89.5 FL (80.0-100.0) Mean Corpuscular Hemoglobin 31.5 PG (27.0-34.0) Mean Corpuscular Hemoglobin Concent 35.2 % (32.0-36.0) Red Cell Distribution Width 13.5 % (11.6-17.2) Platelet Count 96 TH/MM3 (150-450) Mean Platelet Volume 8.2 FL (7.0-11.0) Blood Urea Nitrogen 22 MG/DL (7-18) Creatinine 0.68 MG/DL (0.50-1.00) Random Glucose 109 MG/DL (74-106) Calcium Level 7.6 MG/DL (8.5-10.1) Phosphorus Level 3.4 MG/DL (2.5-4.9) Magnesium Level 2.0 MG/DL (1.5-2.5) Sodium Level 143 MEQ/L (136-145) Potassium Level 3.5 MEQ/L (3.5-5.1) Chloride Level 107 MEQ/L (98-107) Carbon Dioxide Level 25.9 MEQ/L (21.0-32.0) Anion Gap 10 MEQ/L (5-15) Estimat Glomerular Filtration Rate 93 ML/MIN (>89) Blood Gas Puncture Site ART LINE Blood Gas Patient Temperature 98.6 Blood Gas HCO3 24 mmol/L (22-26) Blood Gas Base Excess 1.3 mmol/L (-2-2) Blood Gas Oxygen Saturation 92 % (90-100) Arterial Blood pH 7.49 (7.380-7.420) Arterial Blood Partial Pressure CO2 32 mmHg (38-42) Arterial Blood Partial Pressure O2 69 mmHg (61-120) Arterial Blood Oxygen Content 10.4 Vol % (12.0-20.0) Arterial Blood Carboxyhemoglobin 1.0 % (0-4) Arterial Blood Methemoglobin 1.3 % (0-2) Blood Gas Hemoglobin 8.0 G/DL (12.0-16.0) Oxygen Delivery Device NASAL CANNULA Blood Gas Liter Flow 5 L/M Result Diagram: 08/11/1742408/11/17424 Telemetry: NSR (1) Emergent Aortic Root Replacement ([facility] Procedure) With [address]Delvin Valved Conduit Plan: will need to start coumadin when chest tubes out weaned off cleviprex BB increased will need pt /ot pulm toileting (2) Aortic aneurysm with dissection (3) Blood loss anemia Plan: s/p multiple blood products / HGB stable 8.3 start ferrous sulfate when nausea resolved (4) S/P CABG x 1 Plan: on ASA , BB amiodarone eval for statin Rosalind Rodrigues Aug 11, 2017 16:13
--- NOTE | 2017-08-11 16:17 | HHI.FF ---
Face to Face Verification Diagnosis: (1) Aortic aneurysm with dissection (2) Emergent Aortic Root Replacement ([facility] Procedure) With [address]Delvin Valved Conduit (3) Blood loss anemia (4) S/P CABG x 1 Home Health Nursing Order: Signs/symptoms of disease process Medication education-adverse effect Wound care and dressing changes Nursing assessment with vital signs Instructions: Heart and Vascular Surgery patients *Special attention to sternal dressing Mandatory frequency Assess and evaluation, 4 days in a row The next week 3X week 2 times a week for 4 weeks 1 time a week for 5 weeks Schedule Heart and Vascular patients for full 60 day certification period Initial visit Review Open Heart Surgery Discharge Instructions (Sternal precautions, Activity, Elastic hose, Incision care, Driving, Incentive spirometry, Smoking, [place], Work and other) Need Betadine to paint incision Medication reconciliation Importance of follow up care/ check on appointments Make calendar record temperature daily When to call [facility] nurse, review instructions, phone list Incentive Spirometry, demonstration Visit 1- Begin discharge instruction for patient family and/ or caregiver using teach back method- Signs and symptoms of infection Disease characteristics Medicines and side effects Foods and nutrition/ appetite Infection control/ hand washing/ hygiene Visit 2- Continue teaching Discharge instructions- include additional information on smoking cessation , sternal dressing (sternal vac) Visit 3- Continue teaching- Cough and deep breathing, incision monitoring. Choose my plate Visit 4- Continue teaching- Discuss limitations Discuss how they are feeling Discuss progress toward goals Remaining visits- continue teaching and monitoring PREVENA Single Use Negative Wound Therapy System Caregiver Instruction Sheet 1. A Prevena dressing system was applied to the chest incision during surgery , to promote wound healing. It works via a suction device (negative pressure wound therapy) to remove low to moderate levels of exudate (drainage) and infectious materials. We recommend that the device stay in place for up to seven days, from day of surgery. 2. Day of Surgery____3/10/16 Day of Removal ____/05/24 3. The dressing should only be removed by a health hearing care professional. Please arrange removal of device to coincide with Home Health visit and or with Nursing staff at Rehab 4. If skin reddening or irritation of skin occurs, or excessive drainage, please notify the Cardiovascular Surgeons office at [phone]. 5. Light showering is permissible; however the pump should be disconnected and placed in safe location, where it will not get wet. The dressing should not be exposed to direct spray or submerged in water. No bath tub / shower only. Ensure the end of the tubing attached to the dressing is facing down so that water does not enter the top of the tube. 6. To remove Prevena dressing: press purple button to turn off device / remove the suction. Then disconnect the tubing from the pump. The fixation strips should be stretched away from the skin and the dressing lifted at one corner and peeled back until it has been fully removed. 7. After removal, it is ok to shower daily using liquid dial soap and clean wash cloth, rinse and pat dry, and leave incision open to air dry. For any concerns regarding Prevena dressing, and or wounds, please contact Deloris Ya, patient navigator at [phone] or notify the Cardiovascular Surgeons office at [phone]. Incentive spirometry Q1 hr x 10, while awake, also use acapella device hourly whole awake Sternal Breast Bone Precautions: NO pushing or pulling, ( pt must use sternal pillow to support chest with all activities and with coughing ( takes up to 3 months breast bone to heal ) All females to wear sternal bra , launder as needed Daily incision care: ok to shower daily, no tub bath. Wash all incisions with liquid dial soap, clean wash cloth to each site, rinse and pat dry. Observe for any signs of infection, such as drainage which is dark yellow, gonzalez, green or foul smelling. Immediately report to the surgeon any drainage from the chest incision, or legs, and for any abnormal drainage from the chest tube sites. Notify surgeon if any temp >101.5 degrees F. When specialty dressing removed/ or if you do not have one, continue to shower daily as above, then rinse and pat incision dry and paint with betadine daily x 5 days. Allow steri strips to fall off if you have any. Avoid lotions, creams, salves, oils, etc. for the first month Please see attached forms for additional instructions regarding post Open Heart specialty wound vacuum dressings. HALIE or Prevena , Dressing to be removed by Nursing staff on __08/16/17 F/U appointment: as per DC instructions: PCP in 2 weeks, CV surgeon 2 weeks, Senior Marketing Manager 3-4 weeks For any questions regarding incisions/ dressing / meds / post op care or above Symptoms, Wednesday 8am-5pm Heart & Vascular Surgery Office ( Dr. Manzano & Dr. Devlin), After Hours / Nights (5pm -8am) Weekends and Holidays Please call [facility] Cardiac Intermediate Care Unit (C[facility]) Charge Nurse I have seen patient Anna Marie Barkley on 08/11/17. My clinical findings support the need for the requested home health care services because: Deconditioned w/ increased weakness I certify that my clinical findings support that this patient is homebound because: Post-op weakness (coumadin teaching / goal 2-2.5) Rosalind Rodrigues Aug 11, 2017 16:17
[2017-08-11] MEDS: SENNOSIDES 8.6 MG TAB PO SCH (20:00)
[2017-08-12] VITALS (24 sets, daily range): BP systolic 132–150; BP diastolic 59–70; PULSE 87–117; RESP 17–22; TEMP 97.8–98.8; O2SAT 94–100
[2017-08-12] MEDS: PROCHLORPERAZINE INJ 10 MG/2 ML VIAL IV PUSH PRN ×2 (00:11→16:41)
[2017-08-12] MEDS: INSULIN ASPART SUPPLEMENTAL SCALE SQ SCH ×6 (02:00→22:00)
[2017-08-12] MEDS: METOCLOPRAMIDE HCL 10 MG/2 ML VIAL IV PUSH SCH ×2 (02:34→09:22)
[2017-08-12] MEDS: ACETAMINOPHEN/HYDROcodone 325 MG/7.5 MG TAB PO PRN ×6 (02:38→22:51)
[2017-08-12] MEDS: PANTOPRAZOLE SOD 40 MG DELAYED RELEASE TAB PO SCH (05:49)
[2017-08-12 06:20] LABS: AUTOMATED NEUTROPHIL # 8.4 TH/MM3 (1.8-7.7); BASOPHIL % 0.2 % (0.0-2.0); EOSINOPHIL % 0.3 % (0.0-4.0); HEMATOCRIT 25.3 % (35.0-46.0); HEMOGLOBIN 8.9 GM/DL (11.6-15.3); LYMPH % 12.1 % (9.0-44.0); LYMPHOCYTE # 1.3 TH/MM3 (1.0-4.8); MEAN CELL VOLUME 90.8 FL (80.0-100.0); MEAN CORPUSCULAR HGB CONC 35.3 % (32.0-36.0); MEAN PLATELET VOLUME 8.8 FL (7.0-11.0); MONO % 6.8 % (0.0-8.0); MONOCYTE # 0.7 TH/MM3 (0-0.9); NEUT % 80.6 % (16.0-70.0); PLATELET COUNT 86 TH/MM3 (150-450); RED BLOOD COUNT 2.79 MIL/MM3 (4.00-5.30); RED CELL DISTRIBUTION WIDTH 13.4 % (11.6-17.2); WHITE BLOOD COUNT 10.4 TH/MM3 (4.0-11.0)
[2017-08-12 06:22] LABS: INTERNATIONAL NORMALIZED RATIO 1.1 RATIO; PROTHROMBIN TIME - PATIENT 10.7 SEC (9.8-11.6)
[2017-08-12 06:54] LABS: BICARBONATE 27.9 MEQ/L (21.0-32.0); CALCIUM 7.7 MG/DL (8.5-10.1); CREATININE 0.5 MG/DL (0.50-1.00); MAGNESIUM 2.2 MG/DL (1.5-2.5)
[2017-08-12] MEDS: RESP: ALBUTEROL 2.5 MG/IPRATROPIUM 0.5 MG NEB (SCH) NEB ×3 (07:49→20:28)
[2017-08-12] MEDS: MAGNESIUM HYDROXIDE SUSP 30 ML CUP PO SCH (09:22)
[2017-08-12] MEDS: POLYETHYLENE GLYCOL 17 GM PKG PO SCH (09:22)
[2017-08-12] MEDS: ASPIRIN 81 MG CHEW TAB PO SCH (09:23)
[2017-08-12] MEDS: MULTIVITAMINS/MINERALS THERAPEUTIC TAB PO SCH (09:23)
[2017-08-12] MEDS: METOPROLOL TARTRATE 25 MG TAB PO SCH ×2 (09:23→22:53)
[2017-08-12] MEDS: DOCUSATE SODIUM 100 MG CAP PO SCH ×2 (09:23→23:00)
[2017-08-12] MEDS: SODIUM CHLORIDE 0.9% FLUSH 10 ML FLUSH IV FLUSH SCH ×2 (09:23→23:00)
[2017-08-12] MEDS: AMIODARONE 200 MG TAB PO SCH ×2 (09:24→21:00)
[2017-08-12] MEDS ORDERED: SOD PHOSPHATE/SOD BIPHOSPHATE (ADULT) ENEMA 133ML RECTAL PRN (09:45)
[2017-08-12] MEDS ORDERED: BISACODYL 10 MG SUPP RECTAL PRN (09:45)
--- NOTE | 2017-08-12 17:10 | PD.CAR.PN ---
CVT Progress Note Subjective/Hospital Course: 47-year-old female brought in by EVAC from work with complaint of pain between her shoulder blades, both side of her neck, also some weakness in her right leg and numbness in her right foot that started about 30 minutes prior to arrival. She had a significant difference in the blood pressures in both of her arms, the right being lower than the left. They did a stat CTA of the aorta, which showed an extensive Stand[place] type A aortic dissection. The aneurysm begins at the aortic root, extending into both common carotids with significant narrowing of the true lumens as well as high-grade stenosis versus short segment occlusion of the right common iliac. The right coronary artery arises from the false lumen and left, the true lumen. No hemopericardium. We were immediately consulted to evaluate for repair of emergent ascending aortic aneurysm. Additional finding of left lower ext numbness, decreased pulses right leg and right radial artery PMH: Marfan's syndrome, rosacea ( strong family hx of Marfan's syndrome surgery: 1. Emergent Aortic Root Replacement ([facility] Procedure) With [address]Delvin Valved Conduit 2. Coronary Artery Bypass Grafting (CABG) x 1, with Saphenous vein Graft to the Right Coronary Artery (RCA) 3. Left Femoral Arterial Cannulation 4. Left Leg Open Vein [place] crystalloid 4500cc, EBL 2500cc, cell saver 2170 2 units PRBC, 2 cryo, 6 FFP, 3 PLT pump time 307min Mean BP kept at 60 during the night ( with cleviprex) 3/ EKG shows NSR no acute changes improved circulation right hand and foot , fair cap refill weaned with precedex and finally extubated at 10:38 am to nasal cannula pt following commands, answering appropriately , moving all extremities painful with some nausea wean cleviprex for SBP 120, low dose BB added + 3/7 still having some nausea, amiodarone dose reduced add reglan BB increased , diuresing well weaned off insulin gtt PT/ OOB transfer to stepdown , leave chest tubes in start coumadin when chest tubes out / goal 2-2.5 08/12 pt having urinary retention / straight cathed x 2 españa replaced, UA sent, johan consult urology still painful , improved with meds Objective: GENERAL: A&O x 3 SKIN: Warm and dry. prevena to chest , left groin , left leg HEAD: Normocephalic. EYES: No scleral icterus. No injection or drainage. NECK: Supple, trachea midline. No JVD or lymphadenopathy. CARDIOVASCULAR: Regular rate and rhythm without murmurs, gallops, or rubs. RESPIRATORY: diminished in bases Breath sounds equal bilaterally. No accessory muscle use. GASTROINTESTINAL: Abdomen soft, non-tender, nondistended. MUSCULOSKELETAL: No cyanosis, or edema. BACK: Nontender without obvious deformity. No CVA tenderness. Vital Signs Date Time Temp Pulse Resp B/P (MAP) Pulse Ox O2 Delivery O2 Flow Rate FiO2 08/12/17 16:00 92 08/12/17 15:56 19 08/12/17 15:00 98 Room Air 08/12/17 15:00 97 08/12/17 15:00 98.8 95 20 134/63 (86) 98 08/12/17 14:00 98 08/12/17 13:00 98 08/12/17 12:00 93 08/12/17 11:00 103 08/12/17 11:00 98.0 97 20 132/59 (83) 100 08/12/17 11:00 100 Room Air 08/12/17 10:00 104 08/12/17 09:00 101 08/12/17 08:00 113 08/12/17 07:49 94 21 08/12/17 07:15 97.8 104 19 140/65 (90) 98 08/12/17 07:15 89 08/12/17 07:15 98 Room Air 08/12/17 06:22 90 08/12/17 05:21 87 08/12/17 04:27 91 08/12/17 03:45 98.1 90 17 143/63 (89) 94 08/12/17 03:25 88 08/12/17 03:25 96 Room Air 08/12/17 02:15 89 08/12/17 01:00 92 08/12/17 00:00 92 08/11/17 23:35 98.1 92 16 126/58 (80) 95 08/11/17 23:35 95 Room Air 08/11/17 23:00 93 08/11/17 22:35 90 08/11/17 21:10 96 08/11/17 20:20 102 08/11/17 19:36 16 08/11/17 19:35 96 Room Air 08/11/17 19:35 97.8 105 18 145/65 (91) 96 08/11/17 19:35 100 08/11/17 19:24 91 21 08/11/17 18:00 100 Labs: Laboratory Tests Test 08/12/17 05:15 White Blood Count 10.4 TH/MM3 (4.0-11.0) Red Blood Count 2.79 MIL/MM3 (4.00-5.30) Hemoglobin 8.9 GM/DL (11.6-15.3) Hematocrit 25.3 % (35.0-46.0) Mean Corpuscular Volume 90.8 FL (80.0-100.0) Mean Corpuscular Hemoglobin 32.0 PG (27.0-34.0) Mean Corpuscular Hemoglobin Concent 35.3 % (32.0-36.0) Red Cell Distribution Width 13.4 % (11.6-17.2) Platelet Count 86 TH/MM3 (150-450) Mean Platelet Volume 8.8 FL (7.0-11.0) Neutrophils (%) (Auto) 80.6 % (16.0-70.0) Lymphocytes (%) (Auto) 12.1 % (9.0-44.0) Monocytes (%) (Auto) 6.8 % (0.0-8.0) Eosinophils (%) (Auto) 0.3 % (0.0-4.0) Basophils (%) (Auto) 0.2 % (0.0-2.0) Neutrophils # (Auto) 8.4 TH/MM3 (1.8-7.7) Lymphocytes # (Auto) 1.3 TH/MM3 (1.0-4.8) Monocytes # (Auto) 0.7 TH/MM3 (0-0.9) Eosinophils # (Auto) 0.0 TH/MM3 (0-0.4) Basophils # (Auto) 0.0 TH/MM3 (0-0.2) CBC Comment AUTO DIFF Differential Comment AUTO DIFF CONFIRMED Platelet Estimate LOW (NORMAL) Platelet Morphology Comment NORMAL (NORMAL) Red Cell Morphology Comment NORMAL (NORMAL) Prothrombin Time 10.7 SEC (9.8-11.6) Prothromb Time International Ratio 1.1 RATIO Blood Urea Nitrogen 17 MG/DL (7-18) Creatinine 0.50 MG/DL (0.50-1.00) Random Glucose 101 MG/DL (74-106) Calcium Level 7.7 MG/DL (8.5-10.1) Magnesium Level 2.2 MG/DL (1.5-2.5) Sodium Level 140 MEQ/L (136-145) Potassium Level 3.9 MEQ/L (3.5-5.1) Chloride Level 107 MEQ/L (98-107) Carbon Dioxide Level 27.9 MEQ/L (21.0-32.0) Anion Gap 5 MEQ/L (5-15) Estimat Glomerular Filtration Rate 133 ML/MIN (>89) Result Diagram: 08/12/17 0515 08/12/17 0515 (1) Emergent Aortic Root Replacement ([facility] Procedure) With [address]Delvin Valved Conduit Plan: will need to start coumadin when chest tubes out / start lovenox for now BB increased will need pt /ot pulm toileting (2) Aortic aneurysm with dissection (3) Blood loss anemia Plan: s/p multiple blood products / HGB stable 8.3 start ferrous sulfate when nausea resolved (4) S/P CABG x 1 Plan: on ASA , BB amiodarone eval for statin Rosalind Rodrigues Aug 12, 2017 17:10
[2017-08-12 19:03] LABS: AMORPHOUS SEDIMENT, URINE RARE; BILIRUBIN, URINE NEG (NEG); BLOOD, URINE NEG (NEG); GLUCOSE,URINE NEG (NEG); KETONE, URINE NEG (NEG); NITRITE,URINE NEG (NEG); URINE COLOR YELLOW (YELLW/STRAW); URINE LEUKOCYTE ESTERASE NEG (NEG)
[2017-08-12] MEDS: ENOXAPARIN SODIUM 40 MG/0.4 ML SYRINGE SQ SCH (22:52)
[2017-08-12] MEDS: SENNOSIDES 8.6 MG TAB PO SCH (22:59)
[2017-08-13] VITALS (20 sets, daily range): BP systolic 116–145; BP diastolic 55–70; PULSE 86–115; RESP 18–20; TEMP 98.2–99.1; O2SAT 97–99
[2017-08-13] MEDS: INSULIN ASPART SUPPLEMENTAL SCALE SQ SCH ×4 (02:00→21:02)
[2017-08-13] MEDS: ACETAMINOPHEN/HYDROcodone 325 MG/7.5 MG TAB PO PRN ×6 (03:07→22:37)
[2017-08-13] MEDS: ONDANSETRON HCL 4 MG/2 ML VIAL IV PUSH PRN ×2 (03:07→14:58)
[2017-08-13] MEDS: METOPROLOL TARTRATE 25 MG TAB PO SCH ×2 (05:51→20:49)
[2017-08-13] MEDS: PANTOPRAZOLE SOD 40 MG DELAYED RELEASE TAB PO SCH (05:51)
[2017-08-13 08:09] LABS: PROTHROMBIN TIME - PATIENT 10.1 SEC (9.8-11.6)
[2017-08-13] MEDS: AMIODARONE 200 MG TAB PO SCH ×2 (08:28→20:50)
[2017-08-13] MEDS: ASPIRIN 81 MG CHEW TAB PO SCH (08:28)
[2017-08-13] MEDS: MULTIVITAMINS/MINERALS THERAPEUTIC TAB PO SCH (08:28)
[2017-08-13] MEDS: ENOXAPARIN SODIUM 40 MG/0.4 ML SYRINGE SQ SCH ×2 (08:28→20:50)
[2017-08-13] MEDS: SODIUM CHLORIDE 0.9% FLUSH 10 ML FLUSH IV FLUSH SCH ×2 (08:29→20:51)
[2017-08-13] MEDS: DOCUSATE SODIUM 100 MG CAP PO SCH ×2 (08:29→20:50)
[2017-08-13] MEDS: POLYETHYLENE GLYCOL 17 GM PKG PO SCH (08:29)
[2017-08-13] MEDS: PROCHLORPERAZINE INJ 10 MG/2 ML VIAL IV PUSH PRN (08:29)
[2017-08-13] MEDS: MAGNESIUM HYDROXIDE SUSP 30 ML CUP PO SCH (08:29)
[2017-08-13] MEDS: RESP: ALBUTEROL 2.5 MG/IPRATROPIUM 0.5 MG NEB (SCH) NEB (09:36)
--- NOTE | 2017-08-13 13:05 | PD.CONS ---
HPI Service Urology Consult Requested By Primary Care Physician Unknown Diagnosis: Past Family Social History Allergies: Coded Allergies: acetaminophen (Verified Allergy, Mild, Itching, 08/12/17) oxycodone (Verified Allergy, Mild, Itching, 08/12/17) No Known Allergies (Verified Allergy, Unknown, 08/09/17) Physical Exam Vital Signs Date Time Temp Pulse Resp B/P (MAP) Pulse Ox O2 Delivery O2 Flow Rate FiO2 08/13/17 12:00 100 08/13/17 11:00 86 08/13/17 11:00 98.3 87 20 136/55 (82) 97 08/13/17 11:00 99 Room Air 08/13/17 10:00 87 08/13/17 09:37 98 21 08/13/17 09:00 88 08/13/17 08:00 90 08/13/17 07:00 98 Room Air 08/13/17 07:00 99.1 88 20 145/70 (95) 97 08/13/17 07:00 88 08/13/17 05:04 91 08/13/17 04:00 98.2 87 20 116/55 (75) 97 08/13/17 04:00 86 08/13/17 03:56 98 Room Air 08/13/17 02:00 90 08/13/17 01:37 98.5 91 20 132/58 (82) 97 08/13/17 00:00 98 Room Air 08/12/17 20:28 97 08/12/17 20:18 98.5 104 20 150/70 (96) 97 08/12/17 20:00 98 Room Air 08/12/17 20:00 98.8 117 22 150/70 (96) 97 08/12/17 18:00 91 08/12/17 17:00 92 08/12/17 16:00 92 08/12/17 15:56 19 08/12/17 15:00 98 Room Air 08/12/17 15:00 97 08/12/17 15:00 98.8 95 20 134/63 (86) 98 08/12/17 14:00 98 Physical Exam GENERAL: This is a well-nourished, well-developed patient, in no apparent distress. SKIN: No rashes, ecchymoses or lesions. Cool and dry. HEAD: Atraumatic. Normocephalic. No temporal or scalp tenderness. EYES: Pupils equal round and reactive. Extraocular motions intact. No scleral icterus. No injection or drainage. ENT: Nose without bleeding, purulent drainage or septal hematoma. Throat without erythema, tonsillar hypertrophy or exudate. Uvula midline. Airway patent. NECK: Trachea midline. No JVD or lymphadenopathy. Supple, nontender, no meningeal signs. CARDIOVASCULAR: Regular rate and rhythm without murmurs, gallops, or rubs. RESPIRATORY: Clear to auscultation. Breath sounds equal bilaterally. No wheezes , rales, or rhonchi. GASTROINTESTINAL: Abdomen soft, non-tender, nondistended. No hepato-splenomegaly , or palpable masses. No guarding. GENITOURINARY: MUSCULOSKELETAL: Extremities without clubbing, cyanosis, or edema. No joint tenderness, effusion, or edema noted. No calf tenderness. Negative Homans sign bilaterally. NEUROLOGICAL: Awake and alert. Cranial nerves II through XII intact. Motor and sensory grossly within normal limits. Five out of 5 muscle strength in all muscle groups. Normal speech. Laboratory Tests Test 08/12/17 15:40 08/13/17 06:30 Urine Color YELLOW Urine Turbidity HAZY Urine pH 8.0 Urine Specific [place] 1.022 Urine Protein TRACE Urine Glucose (UA) NEG Urine Ketones NEG Urine Occult Blood NEG Urine Nitrite NEG Urine Bilirubin NEG Urine Urobilinogen LESS THAN 2.0 Urine Leukocyte Esterase NEG Urine WBC 4 Urine Amorphous Sediment RARE Microscopic Urinalysis Comment CULT NOT INDICATED Prothrombin Time 10.1 Prothromb Time International Ratio 1.0 Result Diagram: 08/12/17 0515 08/12/17 0515 Imaging Last Impressions Chest X-Ray 08/11/17 0600 Signed Impressions: Service Date/Time: Friday, August 11, 2017 03:57 - CONCLUSION: 1. Right chest tube remains present and the pneumothorax is visualized. 2. Increased bilateral lower lung zone opacities which could represent pleural effusions with associated volume loss and/or airspace consolidation. Ruddy Mitchell MD Aorta CTA 08/09/17 1128 Signed Impressions: Service Date/Time: Wednesday, August 09, 2017 11:54 - CONCLUSION: 1. Extensive [place] type A aortic dissection. The aneurysm begins at the aortic root and extends into both common carotid arteries with significant narrowing of the true lumens as well as high grade stenosis versus short segment occlusion of the right common iliac artery. The right coronary artery arises from the false lumen and the left the true lumen. See full discussion above. 2. No hemo- pericardium. 3. I spoke with Dr. Lancaster. Jose Kinsey Jr., MD Head CT 08/09/17 0000 Signed Impressions: Service Date/Time: Wednesday, August 09, 2017 11:54 - CONCLUSION: No acute disease. Henok Issa MD Assessment and Plan Assessment and Plan 47 yo female with post operative urinary retention -Recommend leaving españa catheter in place for now -Once her constipation complete resolves, having regular bowel movements, and her ambulation status improves, then I would void trial -F/U as outpatient. Titi Caceres MD Aug 13, 2017 13:05
[2017-08-13] MEDS ORDERED: POTASSIUM CHLORIDE 10 MEQ CONTROLLED RELEASE TAB PO ONE (14:30)
[2017-08-13] MEDS ORDERED: FUROSEMIDE 40 MG/4 ML VIAL IV PUSH ONE (14:30)
--- NOTE | 2017-08-13 14:34 | PD.CAR.PN ---
CVT Progress Note Subjective/Hospital Course: 47-year-old female brought in by EVAC from work with complaint of pain between her shoulder blades, both side of her neck, also some weakness in her right leg and numbness in her right foot that started about 30 minutes prior to arrival. She had a significant difference in the blood pressures in both of her arms, the right being lower than the left. They did a stat CTA of the aorta, which showed an extensive [place] type A aortic dissection. The aneurysm begins at the aortic root, extending into both common carotids with significant narrowing of the true lumens as well as high-grade stenosis versus short segment occlusion of the right common iliac. The right coronary artery arises from the false lumen and left, the true lumen. No hemopericardium. We were immediately consulted to evaluate for repair of emergent ascending aortic aneurysm. Additional finding of left lower ext numbness, decreased pulses right leg and right radial artery PMH: Marfan's syndrome, rosacea ( strong family hx of Marfan's syndrome surgery: 1. Emergent Aortic Root Replacement ([facility] Procedure) With [address]Delvin Valved Conduit 2. Coronary Artery Bypass Grafting (CABG) x 1, with Saphenous vein Graft to the Right Coronary Artery (RCA) 3. Left Femoral Arterial Cannulation 4. Left Leg Open Vein [place] crystalloid 4500cc, EBL 2500cc, cell saver 2170 2 units PRBC, 2 cryo, 6 FFP, 3 PLT pump time 307min Mean BP kept at 60 during the night ( with cleviprex) 08/10 EKG shows NSR no acute changes improved circulation right hand and foot , fair cap refill weaned with precedex and finally extubated at 10:38 am to nasal cannula pt following commands, answering appropriately , moving all extremities painful with some nausea wean cleviprex for SBP 120, low dose BB added + 08/11 still having some nausea, amiodarone dose reduced add reglan BB increased , diuresing well weaned off insulin gtt PT/ OOB transfer to stepdown , leave chest tubes in start coumadin when chest tubes out / goal 2-2.5 08/12 pt having urinary retention / straight cathed x 2 españa replaced, UA sent, johan consult urology still painful , improved with meds 08/13 appreciate urology input keep españa in for now will decrease pain meds chest tubes removed without difficulty OOB ambulate start coumadin today Objective: GENERAL: A&O x 3 SKIN: Warm and dry. prevena dressing to chest left thigh left groin and sternum HEAD: Normocephalic. EYES: No scleral icterus. No injection or drainage. NECK: Supple, trachea midline. No JVD or lymphadenopathy. CARDIOVASCULAR: Regular rate and rhythm without murmurs, gallops, or rubs. RESPIRATORY: Breath sounds equal bilaterally. No accessory muscle use. few crackles GASTROINTESTINAL: Abdomen soft, non-tender, nondistended. MUSCULOSKELETAL: No cyanosis, or edema. BACK: Nontender without obvious deformity. No CVA tenderness. Vital Signs Date Time Temp Pulse Resp B/P (MAP) Pulse Ox O2 Delivery O2 Flow Rate FiO2 08/13/17 13:30 98 20 145/68 (93) 98 08/13/17 13:00 98 08/13/17 12:00 100 08/13/17 11:00 86 08/13/17 11:00 98.3 87 20 136/55 (82) 97 08/13/17 11:00 99 Room Air 08/13/17 10:00 87 08/13/17 09:37 98 21 08/13/17 09:00 88 08/13/17 08:00 90 08/13/17 07:00 98 Room Air 08/13/17 07:00 99.1 88 20 145/70 (95) 97 08/13/17 07:00 88 08/13/17 05:04 91 08/13/17 04:00 98.2 87 20 116/55 (75) 97 08/13/17 04:00 86 08/13/17 03:56 98 Room Air 08/13/17 02:00 90 08/13/17 01:37 98.5 91 20 132/58 (82) 97 08/13/17 00:00 98 Room Air 08/12/17 20:28 97 08/12/17 20:18 98.5 104 20 150/70 (96) 97 08/12/17 20:00 98 Room Air 08/12/17 20:00 98.8 117 22 150/70 (96) 97 08/12/17 18:00 91 08/12/17 17:00 92 08/12/17 16:00 92 08/12/17 15:56 19 08/12/17 15:00 98 Room Air 08/12/17 15:00 97 08/12/17 15:00 98.8 95 20 134/63 (86) 98 Labs: Laboratory Tests Test 08/13/17 06:30 Prothrombin Time 10.1 SEC (9.8-11.6) Prothromb Time International Ratio 1.0 RATIO Result Diagram: 08/12/1751408/12/17 05 (1) Emergent Aortic Root Replacement ([facility] Procedure) With [address]Delvin Valved Conduit Plan: start coumadin lovenox for BB increased will need pt /ot pulm toileting (2) Aortic aneurysm with dissection (3) Blood loss anemia Plan: s/p multiple blood products / HGB stable 8.3 ferrous sulfate (4) S/P CABG x 1 Plan: on ASA , BB amiodarone eval for statin (5) urinarty retention Rosalind Rodrigues Aug 13, 2017 14:34
[2017-08-13] MEDS: WARFARIN SOD 5 MG TAB PO SCH (16:05)
[2017-08-13] MEDS: SENNOSIDES 8.6 MG TAB PO SCH (20:50)
[2017-08-14] VITALS (27 sets, daily range): BP systolic 109–149; BP diastolic 51–67; PULSE 51–104; RESP 16–20; TEMP 98.4–99.2; O2SAT 97–99
[2017-08-14] MEDS: ACETAMINOPHEN/HYDROcodone 325 MG/7.5 MG TAB PO PRN ×5 (03:17→20:54)
[2017-08-14 04:59] LABS: HEMATOCRIT 25.4 % (35.0-46.0); MEAN CELL VOLUME 90.9 FL (80.0-100.0); MEAN CORPUSCULAR HEMOGLOBIN 32.3 PG (27.0-34.0); MEAN CORPUSCULAR HGB CONC 35.5 % (32.0-36.0); MEAN PLATELET VOLUME 8.6 FL (7.0-11.0); PLATELET COUNT 137 TH/MM3 (150-450); RED BLOOD COUNT 2.79 MIL/MM3 (4.00-5.30); RED CELL DISTRIBUTION WIDTH 13.4 % (11.6-17.2); WHITE BLOOD COUNT 8.6 TH/MM3 (4.0-11.0)
--- NOTE | 2017-08-14 05:01 | RADRPT ---
EXAM DATE/TIME: 08/14/2017 04:27 [facility] COMPARISON: CHEST SINGLE AP, August 11, 2017, 3:57. INDICATIONS : Shortness of breath, possible pulmonary disease. MEDICAL HISTORY : None. SURGICAL HISTORY : CABG. ENCOUNTER: Subsequent ACUITY: 1 week PAIN SCORE: 0/10 LOCATION: Bilateral chest FINDINGS: Decreasing basilar consolidation and effusions, now mild/small. No pneumothorax. Heart size stable and within normal limits. Median sternotomy and valve replacement changes are again noted. The mediastinal drains have been removed in the interim. Left subclavian line also out. CONCLUSION: 1. Mediastinal drains and left subclavian line removed. 2. Decreasing bibasilar consolidation and small effusions. No pneumothorax. Ruddy Marshall MD on August 14, 2017 at 4:58 Board Certified Radiologist. This report was verified electronically.
[2017-08-14 05:05] LABS: INTERNATIONAL NORMALIZED RATIO 1.4 RATIO; PROTHROMBIN TIME - PATIENT 14.3 SEC (9.8-11.6)
[2017-08-14 05:18] LABS: BICARBONATE 25.9 MEQ/L (21.0-32.0); CALCIUM 7.8 MG/DL (8.5-10.1); CREATININE 0.45 MG/DL (0.50-1.00)
[2017-08-14] MEDS: PANTOPRAZOLE SOD 40 MG DELAYED RELEASE TAB PO SCH (06:00)
[2017-08-14] MEDS: INSULIN ASPART SUPPLEMENTAL SCALE SQ SCH ×4 (08:00→20:46)
[2017-08-14] MEDS: ONDANSETRON HCL 4 MG/2 ML VIAL IV PUSH PRN (08:22)
[2017-08-14] MEDS: AMIODARONE 200 MG TAB PO SCH ×2 (08:24→20:36)
[2017-08-14] MEDS: DOCUSATE SODIUM 100 MG CAP PO SCH ×2 (08:25→20:37)
[2017-08-14] MEDS: ASPIRIN 81 MG CHEW TAB PO SCH (08:25)
[2017-08-14] MEDS: MULTIVITAMINS/MINERALS THERAPEUTIC TAB PO SCH (08:25)
[2017-08-14] MEDS: MAGNESIUM HYDROXIDE SUSP 30 ML CUP PO SCH (08:25)
[2017-08-14] MEDS: METOPROLOL TARTRATE 25 MG TAB PO SCH ×2 (08:25→20:38)
[2017-08-14] MEDS: ENOXAPARIN SODIUM 40 MG/0.4 ML SYRINGE SQ SCH ×2 (08:27→20:36)
[2017-08-14] MEDS: SODIUM CHLORIDE 0.9% FLUSH 10 ML FLUSH IV FLUSH SCH ×2 (09:00→20:42)
--- NOTE | 2017-08-14 10:03 | PD.CAR.PN ---
CVT Progress Note Subjective/Hospital Course: 47-year-old female brought in by EVAC from work with complaint of pain between her shoulder blades, both side of her neck, also some weakness in her right leg and numbness in her right foot that started about 30 minutes prior to arrival. She had a significant difference in the blood pressures in both of her arms, the right being lower than the left. They did a stat CTA of the aorta, which showed an extensive [place] type A aortic dissection. The aneurysm begins at the aortic root, extending into both common carotids with significant narrowing of the true lumens as well as high-grade stenosis versus short segment occlusion of the right common iliac. The right coronary artery arises from the false lumen and left, the true lumen. No hemopericardium. We were immediately consulted to evaluate for repair of emergent ascending aortic aneurysm. Additional finding of left lower ext numbness, decreased pulses right leg and right radial artery PMH: Marfan's syndrome, rosacea ( strong family hx of Marfan's syndrome surgery: 1. Emergent Aortic Root Replacement ([facility] Procedure) With [address]Delvin Valved Conduit 2. Coronary Artery Bypass Grafting (CABG) x 1, with Saphenous vein Graft to the Right Coronary Artery (RCA) 3. Left Femoral Arterial Cannulation 4. Left Leg Open Vein [place] crystalloid 4500cc, EBL 2500cc, cell saver 2170 2 units PRBC, 2 cryo, 6 FFP, 3 PLT pump time 307min Mean BP kept at 60 during the night ( with cleviprex) 08/10 EKG shows NSR no acute changes improved circulation right hand and foot , fair cap refill weaned with precedex and finally extubated at 10:38 am to nasal cannula pt following commands, answering appropriately , moving all extremities painful with some nausea wean cleviprex for SBP 120, low dose BB added + 08/11 still having some nausea, amiodarone dose reduced add reglan BB increased , diuresing well weaned off insulin gtt PT/ OOB transfer to stepdown , leave chest tubes in start coumadin when chest tubes out / goal 2-2.5 08/12 pt having urinary retention / straight cathed x 2 es[place]ña replaced, UA sent, johan consult urology still painful , improved with meds 08/13 appreciate urology input keep españa in for now will decrease pain meds chest tubes removed without difficulty OOB ambulate start coumadin today 08/14 Doing well Incisional pain Ambulating with assistance Coumadin Discharge planning Objective: Vital Signs Date Time Temp Pulse Resp B/P (MAP) Pulse Ox O2 Delivery O2 Flow Rate FiO2 08/14/17 08:33 98.5 92 18 149/67 (94) 98 08/14/17 08:00 98 Room Air 08/14/17 06:00 84 08/14/17 05:00 51 08/14/17 04:04 98 Room Air 08/14/17 04:04 98.7 88 16 122/59 (80) 99 08/14/17 04:02 83 08/14/17 03:00 84 08/14/17 02:00 83 08/14/17 01:00 88 08/14/17 01:00 98.7 90 16 122/60 (80) 99 08/14/17 00:03 98 Room Air 08/14/17 00:00 92 08/13/17 22:00 92 08/13/17 20:00 98 Room Air 08/13/17 20:00 99.1 111 18 124/58 (80) 99 08/13/17 18:00 115 08/13/17 17:00 110 08/13/17 16:00 96 08/13/17 15:00 98.3 96 20 138/55 (82) 97 08/13/17 15:00 98 08/13/17 15:00 99 Room Air 08/13/17 14:00 106 08/13/17 13:30 98 20 145/68 (93) 98 08/13/17 13:00 98 08/13/17 12:00 100 08/13/17 11:00 86 08/13/17 11:00 98.3 87 20 136/55 (82) 97 08/13/17 11:00 99 Room Air Labs: Laboratory Tests Test 08/14/17 04:29 White Blood Count 8.6 TH/MM3 (4.0-11.0) Red Blood Count 2.79 MIL/MM3 (4.00-5.30) Hemoglobin 9.0 GM/DL (11.6-15.3) Hematocrit 25.4 % (35.0-46.0) Mean Corpuscular Volume 90.9 FL (80.0-100.0) Mean Corpuscular Hemoglobin 32.3 PG (27.0-34.0) Mean Corpuscular Hemoglobin Concent 35.5 % (32.0-36.0) Red Cell Distribution Width 13.4 % (11.6-17.2) Platelet Count 137 TH/MM3 (150-450) Mean Platelet Volume 8.6 FL (7.0-11.0) Prothrombin Time 14.3 SEC (9.8-11.6) Prothromb Time International Ratio 1.4 RATIO Blood Urea Nitrogen 9 MG/DL (7-18) Creatinine 0.45 MG/DL (0.50-1.00) Random Glucose 90 MG/DL (74-106) Calcium Level 7.8 MG/DL (8.5-10.1) Sodium Level 136 MEQ/L (136-145) Potassium Level 4.4 MEQ/L (3.5-5.1) Chloride Level 103 MEQ/L (98-107) Carbon Dioxide Level 25.9 MEQ/L (21.0-32.0) Anion Gap 7 MEQ/L (5-15) Estimat Glomerular Filtration Rate 150 ML/MIN (>89) Result Diagram: 08/14/1742808/14/17428 (1) Emergent Aortic Root Replacement ([facility] Procedure) With [address]Delvin Valved Conduit Plan: start coumadin lovenox for BB increased will need pt /ot pulm toileting (2) Aortic aneurysm with dissection (3) Blood loss anemia Plan: s/p multiple blood products / HGB stable 8.3 ferrous sulfate (4) S/P CABG x 1 Plan: on ASA , BB amiodarone eval for statin (5) urinarty retention Kailey Manzano MD Aug 14, 2017 10:03
[2017-08-14] MEDS: POLYETHYLENE GLYCOL 17 GM PKG PO SCH (16:22)
[2017-08-14] MEDS: WARFARIN SOD 5 MG TAB PO SCH (16:24)
[2017-08-14] MEDS: SENNOSIDES 8.6 MG TAB PO SCH (20:37)
[2017-08-15] VITALS (28 sets, daily range): BP systolic 117–139; BP diastolic 58–62; PULSE 82–108; RESP 16–18; TEMP 98.2–98.6; O2SAT 95–100
[2017-08-15] MEDS: ACETAMINOPHEN/HYDROcodone 325 MG/7.5 MG TAB PO PRN ×5 (01:33→18:35)
[2017-08-15] MEDS: PANTOPRAZOLE SOD 40 MG DELAYED RELEASE TAB PO SCH (06:01)
[2017-08-15 06:08] LABS: INTERNATIONAL NORMALIZED RATIO 3.2 RATIO; PROTHROMBIN TIME - PATIENT 32.1 SEC (9.8-11.6)
[2017-08-15] MEDS: ENOXAPARIN SODIUM 40 MG/0.4 ML SYRINGE SQ SCH (08:00)
[2017-08-15] MEDS: INSULIN ASPART SUPPLEMENTAL SCALE SQ SCH ×4 (08:00→20:53)
[2017-08-15] MEDS: MAGNESIUM HYDROXIDE SUSP 30 ML CUP PO SCH (09:12)
[2017-08-15] MEDS: POLYETHYLENE GLYCOL 17 GM PKG PO SCH (09:12)
[2017-08-15] MEDS: AMIODARONE 200 MG TAB PO SCH (09:13)
[2017-08-15] MEDS: DOCUSATE SODIUM 100 MG CAP PO SCH ×2 (09:13→20:52)
[2017-08-15] MEDS: ASPIRIN 81 MG CHEW TAB PO SCH (09:13)
[2017-08-15] MEDS: METOPROLOL TARTRATE 25 MG TAB PO SCH ×2 (09:14→20:52)
[2017-08-15] MEDS: MULTIVITAMINS/MINERALS THERAPEUTIC TAB PO SCH (09:14)
[2017-08-15] MEDS: ONDANSETRON HCL 4 MG/2 ML VIAL IV PUSH PRN (09:15)
[2017-08-15] MEDS: SODIUM CHLORIDE 0.9% FLUSH 10 ML FLUSH IV FLUSH SCH ×2 (09:16→20:52)
--- NOTE | 2017-08-15 10:54 | PD.CAR.PN ---
CVT Progress Note Subjective/Hospital Course: 47-year-old female brought in by EV[employer] from work with complaint of pain between her shoulder blades, both side of her neck, also some weakness in her right leg and numbness in her right foot that started about 30 minutes prior to arrival. She had a significant difference in the blood pressures in both of her arms, the right being lower than the left. They did a stat CTA of the aorta, which showed an extensive Stand[place] type A aortic dissection. The aneurysm begins at the aortic root, extending into both common carotids with significant narrowing of the true lumens as well as high-grade stenosis versus short segment occlusion of the right common iliac. The right coronary artery arises from the false lumen and left, the true lumen. No hemopericardium. We were immediately consulted to evaluate for repair of emergent ascending aortic aneurysm. Additional finding of left lower ext numbness, decreased pulses right leg and right radial artery PMH: Marfan's syndrome, rosacea ( strong family hx of Marfan's syndrome surgery: 1. Emergent Aortic Root Replacement ([facility] Procedure) With [address]Delvin Valved Conduit 2. Coronary Artery Bypass Grafting (CABG) x 1, with Saphenous vein Graft to the Right Coronary Artery (RCA) 3. Left Femoral Arterial Cannulation 4. Left Leg Open Vein [place] crystalloid 4500cc, EBL 2500cc, cell saver 2170 2 units PRBC, 2 cryo, 6 FFP, 3 PLT pump time 307min Mean BP kept at 60 during the night ( with cleviprex) 08/10 EKG shows NSR no acute changes improved circulation right hand and foot , fair cap refill weaned with precedex and finally extubated at 10:38 am to nasal cannula pt following commands, answering appropriately , moving all extremities painful with some nausea wean cleviprex for SBP 120, low dose BB added + 08/11 still having some nausea, amiodarone dose reduced add reglan BB increased , diuresing well weaned off insulin gtt PT/ OOB transfer to stepdown , leave chest tubes in start coumadin when chest tubes out / goal 2-2.5 08/12 pt having urinary retention / straight cathed x 2 españa replaced, UA sent, johan consult urology still painful , improved with meds 08/13 appreciate urology input keep españa in for now will decrease pain meds chest tubes removed without difficulty OOB ambulate start coumadin today 08/14 Doing well Incisional pain Ambulating with assistance Coumadin Discharge planning 08/15 Doing better. Musculoskeletal pain and incisional discomfort Hold Coumadin today and decrease to 2.5mg daily. D/C Amiodarone Discharge planning Objective: Vital Signs Date Time Temp Pulse Resp B/P (MAP) Pulse Ox O2 Delivery O2 Flow Rate FiO2 08/15/17 09:05 97 21 08/15/17 08:09 98.4 88 17 119/59 (79) 98 08/15/17 08:09 98 Room Air 08/15/17 07:24 87 08/15/17 07:15 16 08/15/17 06:00 87 08/15/17 05:00 84 08/15/17 04:00 82 08/15/17 03:00 96 Room Air 08/15/17 03:00 84 08/15/17 03:00 98.6 90 16 125/58 (80) 96 08/15/17 02:00 90 08/15/17 01:00 86 08/15/17 00:00 84 08/14/17 23:00 98.7 87 18 110/51 (70) 97 08/14/17 23:00 81 08/14/17 23:00 97 Room Air 08/14/17 22:00 100 08/14/17 21:26 98 08/14/17 21:00 104 08/14/17 20:00 98 08/14/17 19:00 98 Room Air 08/14/17 19:00 98.4 99 20 142/63 (89) 99 08/14/17 19:00 99 08/14/17 18:00 100 08/14/17 17:00 96 08/14/17 16:00 99.2 90 18 126/58 (80) 98 08/14/17 16:00 90 08/14/17 16:00 99 Room Air 08/14/17 15:00 84 08/14/17 14:00 82 08/14/17 13:00 68 08/14/17 12:00 98.9 92 18 109/53 (71) 98 08/14/17 12:00 64 08/14/17 12:00 98 Room Air 08/14/17 11:00 96 Labs: Laboratory Tests Test 08/15/17 04:33 Prothrombin Time 32.1 SEC (9.8-11.6) Prothromb Time International Ratio 3.2 RATIO Result Diagram: 08/14/1742808/14/17428 (1) Emergent Aortic Root Replacement ([facility] Procedure) With [address]Delvin Valved Conduit Plan: start coumadin lovenox for BB increased will need pt /ot pulm toileting (2) Aortic aneurysm with dissection (3) Blood loss anemia Plan: s/p multiple blood products / HGB stable 8.3 ferrous sulfate (4) S/P CABG x 1 Plan: on ASA , BB amiodarone eval for statin (5) urinarty retention Kailey Manzano MD Aug 15, 2017 10:54
[2017-08-15] MEDS: ALPRAZolam 0.25 MG TAB PO PRN ×2 (15:20→22:28)
[2017-08-15] MEDS ORDERED: WARFARIN SOD 2.5 MG TAB PO SCH (16:00)
[2017-08-15] MEDS: SENNOSIDES 8.6 MG TAB PO SCH (20:52)
[2017-08-16] VITALS (23 sets, daily range): BP systolic 110–132; BP diastolic 54–56; PULSE 75–101; RESP 16–18; TEMP 98–98.7; O2SAT 98–99
[2017-08-16] MEDS: ACETAMINOPHEN/HYDROcodone 325 MG/7.5 MG TAB PO PRN ×5 (00:30→18:09)
[2017-08-16] MEDS: PANTOPRAZOLE SOD 40 MG DELAYED RELEASE TAB PO SCH (05:28)
[2017-08-16 06:02] LABS: INTERNATIONAL NORMALIZED RATIO 3.3 RATIO; PROTHROMBIN TIME - PATIENT 33.7 SEC (9.8-11.6)
[2017-08-16] MEDS: INSULIN ASPART SUPPLEMENTAL SCALE SQ SCH ×3 (08:00→16:44)
[2017-08-16] MEDS: METOPROLOL TARTRATE 25 MG TAB PO SCH (09:14)
[2017-08-16] MEDS: MULTIVITAMINS/MINERALS THERAPEUTIC TAB PO SCH (09:14)
[2017-08-16] MEDS: SODIUM CHLORIDE 0.9% FLUSH 10 ML FLUSH IV FLUSH SCH (09:15)
[2017-08-16] MEDS: DOCUSATE SODIUM 100 MG CAP PO SCH (09:15)
[2017-08-16] MEDS: POLYETHYLENE GLYCOL 17 GM PKG PO SCH (09:15)
[2017-08-16] MEDS: MAGNESIUM HYDROXIDE SUSP 30 ML CUP PO SCH (09:15)
[2017-08-16] MEDS: ASPIRIN 81 MG CHEW TAB PO SCH (09:15)
[2017-08-16] MEDS: ALPRAZolam 0.25 MG TAB PO PRN (13:31)
[2017-08-16] MEDS ORDERED: DOCU1CAP39 PO (15:53)
[2017-08-16] MEDS ORDERED: NORC5TAB PO (15:53)
[2017-08-16] MEDS ORDERED: ALPR.25 PO (15:53)
[2017-08-16] MEDS ORDERED: METO25TA3 PO (15:53)
[2017-08-16] MEDS ORDERED: ASPI81 PO (15:53)
[2017-08-16] MEDS ORDERED: COUM2.5T PO (15:53)
[2017-08-16] MEDS ORDERED: THERM PO (15:53)
[2017-08-16] MEDS ORDERED: LIPI20TA PO (16:00)
[2017-08-16] MEDS ORDERED: WALKER WHEELS/F1 MIS (16:02)
[2017-08-16] MEDS ORDERED: COMMODE 3-IN-11 MIS (16:02)
--- NOTE | 2017-08-16 16:07 | HHI.DS ---
Discharge Summary Admission Date Aug 09, 2017 at 13:22 Discharge Date: Aug 16, 2017 Admitting Diagnosis Aortic dissection (1) S/P CABG x 1 Diagnosis: Secondary ICD Codes: Z95.1 - Presence of aortocoronary bypass graft (2) S/P AVR (aortic valve replacement) Diagnosis: Secondary ICD Codes: Z95.2 - Presence of prosthetic heart valve (3) Emergent Aortic Root Replacement ([facility] Procedure) With [address]Delvin Valved Conduit Diagnosis: Secondary (4) Aortic aneurysm with dissection Diagnosis: Principal ICD Codes: I71.00 - Dissection of unspecified site of aorta Status: Acute Procedures 08/09 1. Emergent Aortic Root Replacement ([facility] Procedure) With [address]Delvin Valved Conduit 2. Coronary Artery Bypass Grafting (CABG) x 1, with Saphenous vein Graft to the Right Coronary Artery (RCA) 3. Left Femoral Arterial Cannulation 4. Left Leg Open Vein [place] Brief History 47-year-old female brought in by EVAC from work with complaint of pain between her shoulder blades, both side of her neck, also some weakness in her right leg and numbness in her right foot that started about 30 minutes prior to arrival. She had a significant difference in the blood pressures in both of her arms, the right being lower than the left. They did a stat CTA of the aorta, which showed an extensive [place] type A aortic dissection. The aneurysm begins at the aortic root, extending into both common carotids with significant narrowing of the true lumens as well as high-grade stenosis versus short segment occlusion of the right common iliac. The right coronary artery arises from the false lumen and left, the true lumen. No hemopericardium. We were immediately consulted to evaluate for repair of emergent ascending aortic aneurysm. Additional finding of left lower ext numbness, decreased pulses right leg and right radial artery PMH: Marfan's syndrome, rosacea ( strong family hx of Marfan's syndrome CBC/BMP: 08/14/17 0429 08/14/17 0429 Significant Findings Laboratory Tests Test 08/14/17 04:29 08/15/17 04:33 08/16/17 04:55 Red Blood Count 2.79 MIL/MM3 (4.00-5.30) Hemoglobin 9.0 GM/DL (11.6-15.3) Hematocrit 25.4 % (35.0-46.0) Platelet Count 137 TH/MM3 (150-450) Prothrombin Time 14.3 SEC (9.8-11.6) 32.1 SEC (9.8-11.6) 33.7 SEC (9.8-11.6) Creatinine 0.45 MG/DL (0.50-1.00) Calcium Level 7.8 MG/DL (8.5-10.1) Imaging Last Impressions Chest X-Ray 08/14/17 0600 Signed Impressions: Service Date/Time: Monday, August 14, 2017 04:27 - CONCLUSION: 1. Mediastinal drains and left subclavian line removed. 2. Decreasing bibasilar consolidation and small effusions. No pneumothorax. Ruddy Marshall MD Aorta CTA 08/09/17 1128 Signed Impressions: Service Date/Time: Wednesday, August 09, 2017 11:54 - CONCLUSION: 1. Extensive [place]er[place] type A aortic dissection. The aneurysm begins at the aortic root and extends into both common carotid arteries with significant narrowing of the true lumens as well as high grade stenosis versus short segment occlusion of the right common iliac artery. The right coronary artery arises from the false lumen and the left the true lumen. See full discussion above. 2. No hemo- pericardium. 3. I spoke with Dr. [place]. Jose Kinsey Jr., MD Head CT 08/09/17 0000 Signed Impressions: Service Date/Time: Wednesday, August 09, 2017 11:54 - CONCLUSION: No acute disease. Henok Issa MD PE at Discharge GENERAL: A&O x 3 SKIN: Warm and dry.sternal incision intact and well approximated, left groin incision intact and well approximated , left thigh incision intact and well approximated HEAD: Atraumatic. Normocephalic. EYES: Pupils equal and round. No scleral icterus. No injection or drainage. ENT: No nasal bleeding or discharge. Mucous membranes pink and moist. NECK: Trachea midline. No JVD. CARDIOVASCULAR: Regular rate and rhythm. RESPIRATORY: No accessory muscle use. Clear to auscultation. Breath sounds equal bilaterally. GASTROINTESTINAL: Abdomen soft, non-tender, nondistended. Hepatic and splenic margins not palpable. MUSCULOSKELETAL: Extremities without clubbing, cyanosis, or edema. No obvious deformities. NEUROLOGICAL: Awake and alert. No obvious cranial nerve deficits. Motor grossly within normal limits. Five out of 5 muscle strength in the arms and legs. Normal speech. PSYCHIATRIC: Appropriate mood and affect; insight and judgment normal. Hospital Course surgery: 1. Emergent Aortic Root Replacement ([facility] Procedure) With [address]Delvin Valved Conduit 2. Coronary Artery Bypass Grafting (CABG) x 1, with Saphenous vein Graft to the Right Coronary Artery (RCA) 3. Left Femoral Arterial Cannulation 4. Left Leg Open Vein [place] crystalloid 4500cc, EBL 2500cc, cell saver 2170 2 units PRBC, 2 cryo, 6 FFP, 3 PLT pump time 307min Mean BP kept at 60 during the night ( with cleviprex) 08/10 EKG shows NSR no acute changes improved circulation right hand and foot , fair cap refill weaned with precedex and finally extubated at 10:38 am to nasal cannula pt following commands, answering appropriately , moving all extremities painful with some nausea wean cleviprex for SBP 120, low dose BB added + 08/11 still having some nausea, amiodarone dose reduced add reglan BB increased , diuresing well weaned off insulin gtt PT/ OOB transfer to stepdown , leave chest tubes in start coumadin when chest tubes out / goal 2-2.5 08/12 pt having urinary retention / straight cathed x 2 españa replaced, UA sent, johan consult urology still painful , improved with meds 08/13 appreciate urology input keep españa in for now will decrease pain meds chest tubes removed without difficulty OOB ambulate start coumadin today 08/14 Doing well Incisional pain Ambulating with assistance Coumadin Discharge planning 08/15 Doing better. Musculoskeletal pain and incisional discomfort Hold Coumadin today and decrease to 2.5mg daily. D/C Amiodarone Discharge planning 08/16 small BM, additional GI meds given españa dc this am has voided since prevena dressing removed, all incisions intact and well approximated eval for dc today, when C arranged Pt Condition on Discharge: Good Discharge Disposition: Disch w/ Home Health Serv Discharge Instructions DIET: Follow Instructions for: Heart Healthy Diet Activities you can perform: Full Weight Bearing, Shower Only-No Bath Activities to avoid: Prolonged Standing, Strenuous Activity, Driving Additional Activity Instructio: no lifting > 8 lbs or gallon of milk Follow up Referrals: Cardiology - 4 Weeks with Sherif Payne MD PCP Follow-up - 2 Weeks with Yfn Westbrook MD Surgical - 2 Weeks with Rosalind Rodrigues Urology - 2 Weeks with Titi Caceres MD New Orders: PT/INR - 2-3 Days New Medications: Atorvastatin (Lipitor) 20 Mg Tab 20 MG PO HS for Cholesterol Management, #30 TAB 2 Refills Commode 3-in-1 (Commode 3-in-1) 1 Mis Mis EA .XX DIRECTED, #1 0 Refills Hydrocodone-Acetaminophen ([place]) 5 Mg-325 Mg Tab 1 TAB PO Q4H PRN for PAIN, #40 TAB 0 Refills Walker with Front Wheels (Walker with Front Wheels) 1 Mis Mis EA .XX DIRECTED, #1 0 Refills Alprazolam (Xanax) 0.25 Mg Tab 0.25 MG PO Q12H PRN for ANXIETY, #14 TAB 0 Refills Aspirin (Tgt Aspirin) 81 Mg Chw 81 MG PO DAILY for Blood Clot Prevention, #30 EA 2 Refills Docusate Sodium (Dok) 100 Mg Cap 100 MG PO BID for Constipation, #60 CAP 0 Refills Metoprolol Tartrate (Metoprolol Tartrate) 25 Mg Tab 50 MG PO Q12HR for Blood Pressure Management, #60 TAB 2 Refills Multiple Vitamins W/ Minerals (Thera M Plus) 1 Tab 1 TAB PO DAILY for multi vitamin, #30 TAB 2 Refills Warfarin (Coumadin) 2.5 Mg Tab 2.5 MG PO DAILY@1600 for Blood Clot Prevention, #30 TAB 2 Refills goal 2-2.5 hold for > 3.5 Rosalind Rodrigues Aug 16, 2017 16:07
[2017-08-16] MEDS: ONDANSETRON HCL 4 MG/2 ML VIAL IV PUSH PRN (18:09)
== END 2017-08-16 19:05 | disposition home health service (06) | DRG 220 ==
LOC: NEPC 11:25 → NEDA 13:22 → HCVI 22:55 → HCPC 08-11 12:15
PROVIDERS: ADMIT Thoracic Surgery (Cardiothoracic Vascular Surgery); ATTEND Thoracic Surgery (Cardiothoracic Vascular Surgery)
PROC: 021009W Bypass Coronary Artery, One Artery from Aorta with Autologous Venous Tissue, Open Approach (ICD-10-PCS; 2017-08-09)
PROC: 06BQ0ZZ Excision of Left Saphenous Vein, Open Approach (ICD-10-PCS; 2017-08-09)
PROC: 5A1221Z Performance of Cardiac Output, Continuous (ICD-10-PCS; 2017-08-09)
PROC: B246ZZ4 Ultrasonography of Right and Left Heart, Transesophageal (ICD-10-PCS; 2017-08-09)
PROC: 6A550Z2 Pheresis of Platelets, Single (ICD-10-PCS; 2017-08-09)
PROC: 30233K1 Transfusion of Nonautologous Frozen Plasma into Peripheral Vein, Percutaneous Approach (ICD-10-PCS; 2017-08-09)
PROC: 30233N1 Transfusion of Nonautologous Red Blood Cells into Peripheral Vein, Percutaneous Approach (ICD-10-PCS; 2017-08-09)
PROC: 0T9B70Z Drainage of Bladder with Drainage Device, Via Natural or Artificial Opening (ICD-10-PCS; 2017-08-09)
PROC: 02RX0JZ Replacement of Thoracic Aorta, Ascending/Arch with Synthetic Substitute, Open Approach (ICD-10-PCS; principal; 2017-08-09 14:07)
PROC: 02RF0JZ Replacement of Aortic Valve with Synthetic Substitute, Open Approach (ICD-10-PCS; 2017-08-09 14:07)
PROC: 0T9B70Z Drainage of Bladder with Drainage Device, Via Natural or Artificial Opening (ICD-10-PCS; 2017-08-12)
DX: I71.01 Dissection of thoracic aorta (principal); Q87.40 Marfan syndrome, unspecified; R20.0 Anesthesia of skin; D64.89 Other specified anemias; Z82.79 Family history of other congenital malformations, deformations and chromosomal abnormalities; K59.00 Constipation, unspecified; L71.9 Rosacea, unspecified; R33.9 Retention of urine, unspecified; R11.0 Nausea
CPT/HCPCS: 36430; 70450; 71045; 71275; 74174; 76937; 80048; 80053; 81001; 82805; 82948; 83735; 84100; 84484; 85025; 85027; 85610; 85730; 86850; 86900; 86901; 86920; 86927; 86965; 88305; 88311; 93005; 93306; 93318; 94002; 94003; 94150; 94640; 94664; 94667; 94668; 96374; 96375; C9248; J0131; J0171; J0282; J0690; J0780; J1644; J1650; J1815; J1817; J1885; J1940; J2250; J2270; J2370; J2405; J2720; J2765; J2930; J3010; J3370; J3475; J3480; J7613; P9016; P9017; P9035; Q9967